=== PATIENT | male | born 1995 | race Caucasian/White ===

== ENCOUNTER 2016-10-01 00:06 | Inpatient (IN) ==
[2016-10-01 00:52] LABS: Bilirubin,Urine Negative (Negative); Blood,Urine Negative (Negative); Clarity,Urine Cloudy (Clear); Color,Urine Yellow (Yellow); Glucose,Urine (UA) Normal (Normal); Ketones,Urine Negative (Negative); Leukocyte Esterase,Urine Trace (Negative); Nitrite,Urine Negative (Negative); Protein,Urine Negative (Neg-Trace); Specific Gravity,Urine 1.028 (1.010-1.025); Urobilinogen,Urine Normal (Normal)
[2016-10-01 00:55] LABS: Hyaline Casts,Urine None Seen per lpf (None-Few); RBC,Urine 0-3 per hpf (0-3); Squamous Epithelial Cell,Urine Moderate per lpf (None-Few)
[2016-10-01 00:59] LABS: Basophils # 0.1 K/mcL (0.0-0.2); Basophils % 0.9 %; Eosinophils # 0.1 K/mcL (0.0-0.6); Eosinophils % 0.7 %; Hematocrit 45.9 % (37.5-50.1); Hemoglobin 14.7 g/dL (12.9-16.9); Immature Granulocytes % 0.3 % (0-4); Immature Platelets 3.3 % (1.1-6.1); Lymphocytes # 3.2 K/mcL (0.6-4.6); Lymphocytes % 47.2 %; Mean Corpuscular Hemoglobin 28.9 pg (28.0-33.3); Mean Corpuscular Volume 90.4 fL (83.0-100.0); Mean Platelet Volume 10.2 fL (9.4-12.4); Monocytes # 0.8 K/mcL (0.0-1.3); Monocytes % 11.2 %; Neutrophils # 2.7 K/mcL (1.6-8.9); Platelet Count 241 K/mcL (140-400); Red Blood Count 5.08 M/mcL (4.19-5.50); Segmented Neutrophils % 39.7 %
[2016-10-01 01:01] LABS: Amphetamine Screen,Urine Negative ng/mL (Cutoff=1000); Barbiturate Screen,Urine Negative ng/mL (Cutoff=200); Benzodiazepines Screen,Urine Negative ng/mL (Cutoff=200); Cannabinoid Screen,Urine Positive ng/mL (Cutoff = 50); Cocaine Screen,Urine Negative ng/mL (Cutoff= 300); Opiate Screen,Urine Negative ng/mL (Cutoff=300); Phencyclidine Screen,Urine Negative ng/mL (Cutoff=25)
[2016-10-01 01:05] LABS: Bacteria,Urine Few per hpf (None-Few); Mucus,Urine Few (Few)
[2016-10-01 01:15] LABS: BUN/Creatinine Ratio 13 (6-26); Blood Urea Nitrogen 13 mg/dL (8-26); Calcium 10.2 mg/dL (8.6-10.8); Carbon Dioxide 31 mEq/L (19-29); Chloride 103 mEq/L (98-109); Glucose 86 mg/dL (70-99); Osmolality,Calculated 291 (280-300); Potassium 3.8 mEq/L (3.5-4.5); Sodium 141 mEq/L (136-145); eGFR For African Americans > 60 (> 60); eGFR For Non-African Americans > 60 (> 60)
[2016-10-01 01:16] LABS: Acetaminophen < 1.0 mcg/mL (10-30); Ethanol < 10 mg/dL (0-10); Salicylate < 5.0 mg/dL (15-30)
--- NOTE | 2016-10-01 08:08 | Emergency Department Note ---
Attestation Statement - Attestation Attestation: I, Hiren Cox MD, personally evaluated this patient and discussed their management with the midlevel provicer, PAC/REALTIME CAPTIONER. I reviewed the midlevel provider 's note and agree with the documented findings, medical decision making, and plan of care. Patient is a 20-year-old male with history of schizophrenia who presented complaining of increased hallucinations for the past several days. Patient states that he sees worms crawling under his skin and coming out of his skin. He denies hearing voices. He denies any suicidal or homicidal ideation at this time. Patient is very anxious. On examination patient is a well-developed well-nourished young male in no acute distress. He is alert and cooperative. There is no cyanosis or diaphoresis. Sounds are clear and equal bilaterally. Heart regular rate and rhythm. Abdomen soft and nontender with normal bowel sounds. Labs reviewed. Patient was evaluated by the psychiatry service and they are working on placement for the patient. I did discuss the patient with a psychiatrist, Dr. Hamilton, from an outside facility, I believe [facility] in [place] but I am unsure. She did not feel the patient needed admitted because he was not suicidal or homicidal and refused to accept him. At shift change the patient is signed out to the oncoming dayshift team, Dr. Hammer and Dr. Medeiros.
--- NOTE | 2016-10-01 08:57 | Emergency Department Note ---
Disposition Clinical Impression: Tactile hallucinations Disposition: Admitted As Inpatient Condition: Good Time of Disposition: 13:51 Psych HPI - General Chief Complaint: ED Skin/Abscess/Foreign Body Stated Complaint: sees worms under skin Time Seen by Provider: 10/01/16 00:45 Source: patient Limitations: no limitations Nursing Notes Reviewed: Yes Vital Signs Reviewed: Yes - History of Present Illness HPI Narrative: Alert, oriented, nontoxic-appearing 20-year-old male presents for evaluation of increasing hallucinations for the past several days as well as "seeing worms crawling underneath and coming out of my skin". He denies any homicidal or suicidal ideations. He denies any auditory hallucinations. Pt complaint: other Onset (ago): day(s) (2) History of similar episodes: Yes - Related Data Home Medications Medication Instructions Recorded Confirmed No Known Home Drugs 10/01/16 10/01/16 Allergies Allergy/AdvReac Type Severity Reaction Status Date / Time No Known Allergies Allergy Verified 03/09/16 20:34 All systems ED: reviewed and negative except as stated. Constitutional: Denies: fever, chills, weakness, weight change Eyes: Denies: eye pain, eye discharge, vision change ENT ED: Denies: ear pain, throat pain, dental pain, hearing loss, epistaxis, congestion, dysphagia Cardiovascular: Denies: chest pain, palpitations, dyspnea on exertion, edema, syncope Respiratory: Denies: cough, dyspnea, wheezes, hemoptysis, stridor Gastrointestinal: Denies: abdominal pain, nausea, vomiting, diarrhea, constipation, hematemesis, melena, hematochezia Genitourinary: Denies: urgency, dysuria, frequency, hematuria Musculoskeletal: Denies: back pain, neck pain, arthralgia, myalgia Integumentary: Denies: rash, abrasion, lesions Neurological: Denies: headache, weakness, numbness, paresthesias, confusion, abnormal gait, vertigo Psychiatric: Reports: as per HPI, visual hallucinations. Denies: anxiety, depression, suicidal thoughts, homicidal thoughts, auditory hallucinations Endocrine: Denies: fatigue Hematological/Lymphatic: Denies: easy bleeding, easy bruising Allergic/Immunologic: Denies: facial swelling, urticaria Past Medical History - Past Medical History Attestation: Yes The following information was validated with the patient. Source: patient, nursing notes reviewed Medical history: Reports: no medical history, other Surgical history: Reports: no surgical history Psychiatric history: Reports: anxiety, bipolar, schizophrenia - Social History Smoking Status: Current every day smoker Smokeless Tobacco Status: No Alcohol use: Reports: occasionally, recent Drug use: Reports: cocaine, opiates, marijuana, methamphetamine, other Physical Exam - General Limitations: no limitations General appearance: alert, in no apparent distress - Head Head exam: atraumatic, normocephalic, normal inspection - Eye Eye exam: Present: normal appearance, PERRL, EOMI. Absent: nystagmus - ENT ENT exam: mucous membranes moist - Neck Neck exam: Present: normal inspection, full ROM, trachea midline - Chest Chest inspection: Present: normal inspection, symmetric chest wall rise - Respiratory Respiratory exam: Present: normal lung sounds bilaterally. Absent: respiratory distress, wheezes, stridor, accessory muscle use, prolonged expiratory phase - Cardiovascular Cardiovascular exam: Present: regular rate, normal rhythm, normal heart sounds - Abdominal Exam Abdominal exam: Present: soft, Non-Tender, normal bowel sounds. Absent: tenderness, distention, guarding, rebound, rigidity - Extremities Exam Extremities exam: Present: normal inspection, full ROM. Absent: tenderness, pedal edema - Neurological Exam Neurological exam: Present: alert, oriented X3 - Psychiatric Psychiatric exam: Present: normal affect, normal mood - Skin Skin exam: Present: warm, dry, intact, normal color Course Course Narrative: I received care of this patient from Travis Reyes PA-C due to mid-level shift change. Per Travis Reyes's accord, we are awaiting admission to the inpatient psychiatric unit here at . 0923: I spoke with SHAILA Welsh at . Blaise states that he believes the patient would be admitted to when a bed is available. The patient remains calm and cooperative and is resting in bed comfortably. He verbalizes no complaints or concerns at this time. 1220: Was notified by the patient's nurse that the patient is becoming agitated and states that he is wanting to leave. The patient had not been pink slipped by the previous shift. Reevaluation between myself and the patient reveals that the patient still denies any suicidal or homicidal ideations. I have spoken with Dr. Hammer regarding this. Dr. Bueno recommends consultation with . After speaking with one A, they state that they will be able to send a nurse appear momentarily for a repeat evaluation. I have discussed this plan with the patient and the patient is agreeable to this. I have pink slipped the patient so that he may not leave prior to repeat evaluation from the inpatient psychiatric nurse. 1305: SHAILA Welsh from is at the patient's bedside for repeat evaluation. 1349: I have discussed this patient's case and repeat evaluation with SHAILA Welsh from . Blaise has spoken with Dr. Altamirano, psychiatrist sandstone inspector repairer. The patient has been deemed no threat to himself or others after repeat evaluation. He has been given resource information and has been cleared for discharge by . again , the patient verbalizes no thoughts or suggestions of self-harm or harm to others. 1500: I have spoken with SHAILA Welsh from after yet another discussion between himself and Dr. Altamirano. Blaise states that Dr. Altamirano has decided to admit the patient to the inpatient unit. Vital Signs Temperature 98.0 F 10/01/16 00:10 Pulse Rate 76 10/01/16 00:10 Respiratory Rate 16 10/01/16 00:10 Blood Pressure 146/83 10/01/16 00:10 O2 Sat by Pulse Oximetry 97 10/01/16 00:10 Temperature 98.0 F 10/01/16 00:10 Pulse Rate 66 10/01/16 03:46 Respiratory Rate 16 10/01/16 03:46 Blood Pressure 110/66 10/01/16 03:46 O2 Sat by Pulse Oximetry 97 10/01/16 03:46 Oxygen Delivery Oxygen Delivery Room Air Psych - MDM Narrative Medical decision making narrative: 1630 hrs.: 1A as reevaluated the patient, they believe he does need admission, 72 hour hold was placed and he is being admitted. Impression was acute psychosis with visual hallucinations. - Lab Data Lab results reviewed: Yes I reviewed the patient's lab results. Lab results narrative: Laboratory Last Values WBC 6.8 K/mcL (4.3-11.1) 10/01/16 00:49 RBC 5.08 M/mcL (4.19-5.50) 10/01/16 00:49 Hgb 14.7 g/dL (12.9-16.9) 10/01/16 00:49 Hct 45.9 % (37.5-50.1) 10/01/16 00:49 MCV 90.4 fL (83.0-100.0) 10/01/16 00:49 MCH 28.9 pg (28.0-33.3) 10/01/16 00:49 MCHC 32.0 g/dL (31.6-35.5) 10/01/16 00:49 RDW 13.0 % (11.5-14.5) 10/01/16 00:49 Plt Count 241 K/mcL (140-400) 10/01/16 00:49 MPV 10.2 fL (9.4-12.4) 10/01/16 00:49 Immature Gran % 0.3 % (0-4) 10/01/16 00:49 Seg Neutrophils % 39.7 % 10/01/16 00:49 Lymphocytes % 47.2 % 10/01/16 00:49 Monocytes % 11.2 % 10/01/16 00:49 Eosinophils % 0.7 % 10/01/16 00:49 Basophils % 0.9 % 10/01/16 00:49 Neutrophils # 2.7 K/mcL (1.6-8.9) 10/01/16 00:49 Lymphocytes # 3.2 K/mcL (0.6-4.6) 10/01/16 00:49 Monocytes # 0.8 K/mcL (0.0-1.3) 10/01/16 00:49 Eosinophils # 0.1 K/mcL (0.0-0.6) 10/01/16 00:49 Basophils # 0.1 K/mcL (0.0-0.2) 10/01/16 00:49 Immature Plt Fraction 3.3 % (1.1-6.1) 10/01/16 00:49 Sodium 141 mEq/L (136-145) 10/01/16 00:49 Potassium 3.8 mEq/L (3.5-4.5) 10/01/16 00:49 Chloride 103 mEq/L (98-109) 10/01/16 00:49 Carbon Dioxide 31 mEq/L (19-29) H 10/01/16 00:49 BUN 13 mg/dL (8-26) 10/01/16 00:49 Creatinine 1.01 mg/dL (0.72-1.25) 10/01/16 00:49 Est GFR ( Amer) > 60 (> 60) 10/01/16 00:49 Est GFR (Non-Af Amer) > 60 (> 60) 10/01/16 00:49 BUN/Creatinine Ratio 13 (6-26) 10/01/16 00:49 Glucose 86 mg/dL (70-99) 10/01/16 00:49 Calculated Osmolality 291 (280-300) 10/01/16 00:49 Calcium 10.2 mg/dL (8.6-10.8) 10/01/16 00:49 Urine Color Yellow (Yellow) 10/01/16 00:44 Urine Clarity Cloudy (Clear) A 10/01/16 00:44 Urine pH 6.0 pH Units (5.0-8.0) 10/01/16 00:44 Ur Specific Dewy Rose 1.028 (1.010-1.025) H 10/01/16 00:44 Urine Protein Negative mg/dL (Neg-Trace) 10/01/16 00:44 Urine Glucose (UA) Normal mg/dL (Normal) 10/01/16 00:44 Urine Ketones Negative mg/dL (Negative) 10/01/16 00:44 Urine Blood Negative (Negative) 10/01/16 00:44 Urine Nitrite Negative (Negative) 10/01/16 00:44 Urine Bilirubin Negative (Negative) 10/01/16 00:44 Urine Urobilinogen Normal mg/dL (Normal) 10/01/16 00:44 Ur Leukocyte Esterase Trace (Negative) H 10/01/16 00:44 Urine Microscopic RBC 0-3 per hpf (0-3) 10/01/16 00:44 Urine Microscopic WBC 5-15 per hpf (0-3) H 10/01/16 00:44 Ur Squamous Epith Cells Moderate per lpf (None-Few) H 10/01/16 00:44 Urine Bacteria Few per hpf (None-Few) 10/01/16 00:44 Hyaline Casts None Seen per lpf (None-Few) 10/01/16 00:44 Urine Mucus Few (Few) 10/01/16 00:44 Salicylates < 5.0 mg/dL (15-30) L 10/01/16 00:49 Urine Opiates Screen Negative ng/mL (Xdhpkg=671) 10/01/16 00:44 Acetaminophen < 1.0 mcg/mL (10-30) L 10/01/16 00:49 Ur Barbiturates Screen Negative ng/mL (Orktdo=058) 10/01/16 00:44 Ur Phencyclidine Scrn Negative ng/mL (Cutoff=25) 10/01/16 00:44 Ur Amphetamines Screen Negative ng/mL (Qpndfc=5115) 10/01/16 00:44 U Benzodiazepines Scrn Negative ng/mL (Favesr=343) 10/01/16 00:44 Urine Cocaine Screen Negative ng/mL (Cutoff= 300) 10/01/16 00:44 U Marijuana (THC) Screen Positive ng/mL (Cutoff = 50) H 10/01/16 00:44 Ethyl Alcohol < 10 mg/dL (0-10) 10/01/16 00:49 Result diagrams: 10/01/16 00:49 10/01/16 00:49 Lab Results 10/01/16 10/01/16 10/01/16 Range/Units 00:44 00:44 00:49 WBC 6.8 (4.3-11.1) K/mcL RBC 5.08 (4.19-5.50) M/mcL Hgb 14.7 (12.9-16.9) g/dL Hct 45.9 (37.5-50.1) % MCV 90.4 (83.0-100.0) fL MCH 28.9 (28.0-33.3) pg MCHC 32.0 (31.6-35.5) g/dL RDW 13.0 (11.5-14.5) % Plt Count 241 (140-400) K/mcL MPV 10.2 (9.4-12.4) fL Immature Gran % 0.3 (0-4) % Seg Neutrophils % 39.7 % Lymphocytes % 47.2 % Monocytes % 11.2 % Eosinophils % 0.7 % Basophils % 0.9 % Neutrophils # 2.7 (1.6-8.9) K/mcL Lymphocytes # 3.2 (0.6-4.6) K/mcL Monocytes # 0.8 (0.0-1.3) K/mcL Eosinophils # 0.1 (0.0-0.6) K/mcL Basophils # 0.1 (0.0-0.2) K/mcL Immature Plt Fraction 3.3 (1.1-6.1) % Sodium (136-145) mEq/L Potassium (3.5-4.5) mEq/L Chloride (98-109) mEq/L Carbon Dioxide (19-29) mEq/L BUN (8-26) mg/dL Creatinine (0.72-1.25) mg/dL Est GFR ( Amer) (> 60) Est GFR (Non-Af Amer) (> 60) BUN/Creatinine Ratio (6-26) Glucose (70-99) mg/dL Calculated Osmolality (280-300) Calcium (8.6-10.8) mg/dL Urine Color Yellow (Yellow) Urine Clarity Cloudy A (Clear) Urine pH 6.0 (5.0-8.0) pH Units Ur Specific Dewy Rose 1.028 H (1.010-1.025) Urine Protein Negative (Neg-Trace) mg/dL Urine Glucose (UA) Normal (Normal) mg/dL Urine Ketones Negative (Negative) mg/dL Urine Blood Negative (Negative) Urine Nitrite Negative (Negative) Urine Bilirubin Negative (Negative) Urine Urobilinogen Normal (Normal) mg/dL Ur Leukocyte Esterase Trace H (Negative) Urine Microscopic RBC 0-3 (0-3) per hpf Urine Microscopic WBC 5-15 H (0-3) per hpf Ur Squamous Epith Cells Moderate H (None-Few) per lpf Urine Bacteria Few (None-Few) per hpf Hyaline Casts None Seen (None-Few) per lpf Urine Mucus Few (Few) Salicylates (15-30) mg/dL Urine Opiates Screen Negative (Gizvwf=122) ng/mL Acetaminophen (10-30) mcg/mL Ur Barbiturates Screen Negative (Inxdsi=090) ng/mL Ur Phencyclidine Scrn Negative (Cutoff=25) ng/mL Ur Amphetamines Screen Negative (Kkbeyf=9251) ng/mL U Benzodiazepines Scrn Negative (Wlyzlh=023) ng/mL Urine Cocaine Screen Negative (Cutoff= 300) ng/mL U Marijuana (THC) Screen Positive H (Cutoff = 50) ng/mL Ethyl Alcohol (0-10) mg/dL 10/01/16 Range/Units 00:49 WBC (4.3-11.1) K/mcL RBC (4.19-5.50) M/mcL Hgb (12.9-16.9) g/dL Hct (37.5-50.1) % MCV (83.0-100.0) fL MCH (28.0-33.3) pg MCHC (31.6-35.5) g/dL RDW (11.5-14.5) % Plt Count (140-400) K/mcL MPV (9.4-12.4) fL Immature Gran % (0-4) % Seg Neutrophils % % Lymphocytes % % Monocytes % % Eosinophils % % Basophils % % Neutrophils # (1.6-8.9) K/mcL Lymphocytes # (0.6-4.6) K/mcL Monocytes # (0.0-1.3) K/mcL Eosinophils # (0.0-0.6) K/mcL Basophils # (0.0-0.2) K/mcL Immature Plt Fraction (1.1-6.1) % Sodium 141 (136-145) mEq/L Potassium 3.8 (3.5-4.5) mEq/L Chloride 103 (98-109) mEq/L Carbon Dioxide 31 H (19-29) mEq/L BUN 13 (8-26) mg/dL Creatinine 1.01 (0.72-1.25) mg/dL Est GFR ( Amer) > 60 (> 60) Est GFR (Non-Af Amer) > 60 (> 60) BUN/Creatinine Ratio 13 (6-26) Glucose 86 (70-99) mg/dL Calculated Osmolality 291 (280-300) Calcium 10.2 (8.6-10.8) mg/dL Urine Color (Yellow) Urine Clarity (Clear) Urine pH (5.0-8.0) pH Units Ur Specific Dewy Rose (1.010-1.025) Urine Protein (Neg-Trace) mg/dL Urine Glucose (UA) (Normal) mg/dL Urine Ketones (Negative) mg/dL Urine Blood (Negative) Urine Nitrite (Negative) Urine Bilirubin (Negative) Urine Urobilinogen (Normal) mg/dL Ur Leukocyte Esterase (Negative) Urine Microscopic RBC (0-3) per hpf Urine Microscopic WBC (0-3) per hpf Ur Squamous Epith Cells (None-Few) per lpf Urine Bacteria (None-Few) per hpf Hyaline Casts (None-Few) per lpf Urine Mucus (Few) Salicylates < 5.0 L (15-30) mg/dL Urine Opiates Screen (Rwhscc=307) ng/mL Acetaminophen < 1.0 L (10-30) mcg/mL Ur Barbiturates Screen (Uzocic=419) ng/mL Ur Phencyclidine Scrn (Cutoff=25) ng/mL Ur Amphetamines Screen (Iiteye=9544) ng/mL U Benzodiazepines Scrn (Zavnqe=019) ng/mL Urine Cocaine Screen (Cutoff= 300) ng/mL U Marijuana (THC) Screen (Cutoff = 50) ng/mL Ethyl Alcohol < 10 (0-10) mg/dL Psychiatric Medical Clearance - Medical Clearance Checklist Medical History: No Social History Section defined Current Vitals: Last Vital Signs Temp 98.0 F 10/01/16 00:10 Pulse 66 10/01/16 03:46 Resp 16 10/01/16 03:46 BP 110/66 10/01/16 03:46 Pulse Ox 97 10/01/16 03:46 Psychiatric Lab Panel: Drug Levels and Toxicity 10/01/16 10/01/16 00:44 00:49 Urine Opiates Screen Negative Acetaminophen < 1.0 L Ur Barbiturates Screen Negative Ur Phencyclidine Scrn Negative Ur Amphetamines Screen Negative U Benzodiazepines Scrn Negative Urine Cocaine Screen Negative U Marijuana (THC) Screen Positive H Ethyl Alcohol < 10 Abnormal Labs: Abnormal lab results Carbon Dioxide 31 mEq/L (19-29) H 10/01/16 00:49 Urine Clarity Cloudy (Clear) A 10/01/16 00:44 Ur Specific Dewy Rose 1.028 (1.010-1.025) H 10/01/16 00:44 Ur Leukocyte Esterase Trace (Negative) H 10/01/16 00:44 Urine Microscopic WBC 5-15 per hpf (0-3) H 10/01/16 00:44 Ur Squamous Epith Cells Moderate per lpf (None-Few) H 10/01/16 00:44 Salicylates < 5.0 mg/dL (15-30) L 10/01/16 00:49 Acetaminophen < 1.0 mcg/mL (10-30) L 10/01/16 00:49 U Marijuana (THC) Screen Positive ng/mL (Cutoff = 50) H 10/01/16 00:44
[2016-10-01] MEDS ORDERED: *HR* LORazepam 2 MG/ML VIAL IM ONE (15:15)
[2016-10-01] MEDS ORDERED: Haloperidol Lactate 5 MG/ML VIAL IM ONE (15:15)
[2016-10-01] MEDS ORDERED: Ibuprofen 400 MG TABLET PO PRN (16:41)
[2016-10-01] MEDS ORDERED: MOM Conc 10 ML UD.LIQ PO PRN (16:41)
[2016-10-01] MEDS ORDERED: Mag Hydrox/Al Hydrox/Simeth 30 ML UDC PO PRN (16:41)
[2016-10-01] MEDS ORDERED: Haloperidol Lactate 5 MG/ML VIAL IM PRN (16:41)
[2016-10-01] MEDS ORDERED: *HR* LORazepam 2 MG/ML VIAL IM PRN (16:41)
[2016-10-01] MEDS: *HR* LORazepam 1 MG TABLET PO PRN (20:56)
--- NOTE | 2016-10-02 15:04 | Psychiatry History & Physical ---
Date of Encounter: 10/02/16 Time of Encounter: 14:55 History of Present Illness Patient Stated Chief Complaint: worms Medicare Admission Attestation: For traditional Medicare patients the provided hospital inpatient services are reasonable and necessary and in the case of services not specified as inpatient -only under 42 CFR 419.22 (n), that they are appropriately provided as inpatient services in accordance 42 CFR 412.3. For Critical Access Hospital the patient may reasonably be expected to be discharged or transferred to a hospital within 96 hours after admission to the Critical Access Hospital. Admitted From: Home Plans for Post Hospital Care: Home History of Present Illness: Mr. Little is a 20 year old male who presented to the ER claiming he had worms crawling under his skin and coming out of the chicken he was eating. Not suicidal or homicidal but actively psychotic. Responding to IS. Angry about admission. Reports he has no mental health issues and he wants tested for HIV. Claims he has no medical issues but then states he was bleeding out of his brain yesterday. When asked about allergies he states "just when my head goes through windshields." Answers to questions nonsensical at times. Heavy substance abuse history. Part of presentation may be substance induced. Unwilling to consider any treatment. Prior admission discharged him on Vistaril prn only. Suspect he refused treatment then as well and ended up leaving with nothing because he did not meet criteria for forced medications. Situation this time may be similar. He has been verbally agitated but he has not acted in a dangerous manner and he has not threatened harm to self or others. Informed him this staff writer would be ordering medications that would likely help his beliefs of worms crawling in his body, but that provided he was not a safety risk taking the medication would be his choice. Past Med Surg Social Fam HX - Past Medical History Medical history: no medical history, other - Past Psychiatric History Psychiatric history: Reports: schizophrenia, previous psychiatric hospitalization Family psychiatric history: Unknown Family History of Suicide: Unknown - Past Surgical History Surgical History: no surgical history - Social History Smoking Status: Current every day smoker Smokeless Tobacco Status: No Alcohol use: occasionally, recent Drug use: cocaine, opiates, marijuana, methamphetamine, other Medications & Allergies No Known Home Drugs 10/01/16 [History] Allergies No Known Allergies Allergy (Verified 03/09/16 20:34) Review of Systems Constitutional: Denies: fever, chills, weakness, weight change Eyes: Denies: eye pain, vision change Ears, Nose, Throat: Denies: ear pain, throat pain, dental pain, hearing loss, congestion Cardiovascular: Denies: chest pain, palpitations, dyspnea on exertion Respiratory: Denies: cough, dyspnea, wheezes Gastrointestinal: Denies: abdominal pain, nausea, vomiting, diarrhea, constipation Genitourinary male: Denies: urgency, dysuria, frequency, genital lesions Genitourinary female: Denies: urgency, dysuria, frequency, abnormal menses, dyspareunia Musculoskeletal: Denies: joint swelling, joint pain Integumentary: Denies: rash, lesions, pruritus Neurological: Denies: headache, weakness, numbness, memory loss Endocrine: Denies: fatigue, heat or cold intolerance Hematologic/Lymphatic: Denies: easy bruising, lymphadenopathy Allergic/Immunologic: Denies: urticaria, itchy eyes Mental Status Exam Patient orientation: Yes Person, Yes Time, Yes Place Level of alertness: Alert Patient appearance: Appropriate Behavior: uncooperative Psychomotor activity: Normal Eye contact: Minimal Contact Mood description: Angry Affect description: congruent with mood Speech pattern: Normal rate, Normal rhythm, Normal tone Speech volume: Normal Thought process: Loose Associations Thought content: No Suicidal ideation, No Homicidal ideation, Yes Somatic delusion Perceptual disturbances: Yes Reacting to internal stimuli Attention span: Capable of Focused Attention Memory description: Grossly Intact Patient reliability: Questionable Historian Intelligence estimate: Below Average Judgment: Limited Insight: None Exam - HEENT Head exam IM: Present: normal inspection Eye exam IM: Present: EOMI ENT exam IM: Present: mucous membranes moist - Neurological Neurological exam IM: Present: alert, oriented X3 - Respiratory Respiratory exam IM: Present: CTAB - GI/Abdominal GI/Abdominal exam IM: Present: normal bowel sounds - Extremities Extremities exam IM: Present: full ROM - Skin Skin exam IM: Present: intact Results - Vital Signs Vital signs: Temp Pulse Resp BP Pulse Ox 97.8 F 57 16 120/74 97 10/02/16 09:00 10/02/16 09:00 10/02/16 09:00 10/02/16 09:00 10/01/16 03:46 - Labs Labs: Laboratory Last Values WBC 6.8 K/mcL (4.3-11.1) 10/01/16 00:49 RBC 5.08 M/mcL (4.19-5.50) 10/01/16 00:49 Hgb 14.7 g/dL (12.9-16.9) 10/01/16 00:49 Hct 45.9 % (37.5-50.1) 10/01/16 00:49 MCV 90.4 fL (83.0-100.0) 10/01/16 00:49 MCH 28.9 pg (28.0-33.3) 10/01/16 00:49 MCHC 32.0 g/dL (31.6-35.5) 10/01/16 00:49 RDW 13.0 % (11.5-14.5) 10/01/16 00:49 Plt Count 241 K/mcL (140-400) 10/01/16 00:49 MPV 10.2 fL (9.4-12.4) 10/01/16 00:49 Immature Gran % 0.3 % (0-4) 10/01/16 00:49 Seg Neutrophils % 39.7 % 10/01/16 00:49 Lymphocytes % 47.2 % 10/01/16 00:49 Monocytes % 11.2 % 10/01/16 00:49 Eosinophils % 0.7 % 10/01/16 00:49 Basophils % 0.9 % 10/01/16 00:49 Neutrophils # 2.7 K/mcL (1.6-8.9) 10/01/16 00:49 Lymphocytes # 3.2 K/mcL (0.6-4.6) 10/01/16 00:49 Monocytes # 0.8 K/mcL (0.0-1.3) 10/01/16 00:49 Eosinophils # 0.1 K/mcL (0.0-0.6) 10/01/16 00:49 Basophils # 0.1 K/mcL (0.0-0.2) 10/01/16 00:49 Immature Plt Fraction 3.3 % (1.1-6.1) 10/01/16 00:49 Sodium 141 mEq/L (136-145) 10/01/16 00:49 Potassium 3.8 mEq/L (3.5-4.5) 10/01/16 00:49 Chloride 103 mEq/L (98-109) 10/01/16 00:49 Carbon Dioxide 31 mEq/L (19-29) H 10/01/16 00:49 BUN 13 mg/dL (8-26) 10/01/16 00:49 Creatinine 1.01 mg/dL (0.72-1.25) 10/01/16 00:49 Est GFR ( Amer) > 60 (> 60) 10/01/16 00:49 Est GFR (Non-Af Amer) > 60 (> 60) 10/01/16 00:49 BUN/Creatinine Ratio 13 (6-26) 10/01/16 00:49 Glucose 86 mg/dL (70-99) 10/01/16 00:49 Calculated Osmolality 291 (280-300) 10/01/16 00:49 Calcium 10.2 mg/dL (8.6-10.8) 10/01/16 00:49 Urine Color Yellow (Yellow) 10/01/16 00:44 Urine Clarity Cloudy (Clear) A 10/01/16 00:44 Urine pH 6.0 pH Units (5.0-8.0) 10/01/16 00:44 Ur Specific [place] 1.028 (1.010-1.025) H 10/01/16 00:44 Urine Protein Negative mg/dL (Neg-Trace) 10/01/16 00:44 Urine Glucose (UA) Normal mg/dL (Normal) 10/01/16 00:44 Urine Ketones Negative mg/dL (Negative) 10/01/16 00:44 Urine Blood Negative (Negative) 10/01/16 00:44 Urine Nitrite Negative (Negative) 10/01/16 00:44 Urine Bilirubin Negative (Negative) 10/01/16 00:44 Urine Urobilinogen Normal mg/dL (Normal) 10/01/16 00:44 Ur Leukocyte Esterase Trace (Negative) H 10/01/16 00:44 Urine Microscopic RBC 0-3 per hpf (0-3) 10/01/16 00:44 Urine Microscopic WBC 5-15 per hpf (0-3) H 10/01/16 00:44 Ur Squamous Epith Cells Moderate per lpf (None-Few) H 10/01/16 00:44 Urine Bacteria Few per hpf (None-Few) 10/01/16 00:44 Hyaline Casts None Seen per lpf (None-Few) 10/01/16 00:44 Urine Mucus Few (Few) 10/01/16 00:44 Salicylates < 5.0 mg/dL (15-30) L 10/01/16 00:49 Urine Opiates Screen Negative ng/mL (Fsvnuq=163) 10/01/16 00:44 Acetaminophen < 1.0 mcg/mL (10-30) L 10/01/16 00:49 Ur Barbiturates Screen Negative ng/mL (Zjfcgn=623) 10/01/16 00:44 Ur Phencyclidine Scrn Negative ng/mL (Cutoff=25) 10/01/16 00:44 Ur Amphetamines Screen Negative ng/mL (Psbhse=9752) 10/01/16 00:44 U Benzodiazepines Scrn Negative ng/mL (Yytftb=649) 10/01/16 00:44 Urine Cocaine Screen Negative ng/mL (Cutoff= 300) 10/01/16 00:44 U Marijuana (THC) Screen Positive ng/mL (Cutoff = 50) H 10/01/16 00:44 Ethyl Alcohol < 10 mg/dL (0-10) 10/01/16 00:49 Assessment and Plan (1) Acute psychosis Current visit: No Status: Acute Plan: Admit inpatient for safety and stabilization, Close observation, Suicide Precautions per unit protocol, Encourage participation in unit milieu, Group Therapy, Monitor sleep, Monitor appetite Risks, benefits, side effects, alternatives discussed w/pt: Yes Patient agreeable to treatment: Yes Plans for Post Hospital Care: Home Estimated Length of Stay (Days): 4
[2016-10-02] MEDS: *HR* LORazepam 1 MG TABLET PO PRN (20:11)
--- NOTE | 2016-10-03 11:48 | Psychiatry Progress Note ---
Date of Encounter: 10/03/16 Time of Encounter: 11:41 Subjective Interval history: Psychotic. Giggling. Making nonsensical statements. Actively responding to internal stimuli. Refused all meds last night. Bordered on needing prns but ultimately did not do anything that warranted forced/emergency meds. Other patients are steering clear of him. Some were annoyed with him but backed down when they realized how sick he was. Client today is still focused on worms and possibly having AIDS. Called himself "the mother of worms" for spreading HIV but then broke down laughing. HIV test ordered but not drawn. Very possible client refused blood test. No real supports. Client is essentially homeless. Admitted to extensive drug use including a long history with LSD that is likely contributing to his clinical picture now. Drug of choice now is heroin. Has also repeatedly used Crystal Meth, Ecstasy, Bath Salts, etc. Unclear how much better he can get even if he agrees to treatment with antipsychotics. Review of Systems Constitutional: Denies: fever, chills, weakness, weight change Eyes: Denies: eye pain, vision change Ears, Nose, Throat: Denies: ear pain, throat pain, dental pain, hearing loss, congestion Cardiovascular: Denies: chest pain, palpitations, dyspnea on exertion Respiratory: Denies: cough, dyspnea, wheezes Gastrointestinal: Denies: abdominal pain, nausea, vomiting, diarrhea, constipation Musculoskeletal: Denies: joint swelling, joint pain Neurological: Denies: headache, weakness, numbness, memory loss Objective: Exam Patient orientation: Yes Person, Yes Time, Yes Place Level of alertness: Alert Patient appearance: Appropriate Behavior: restless Psychomotor activity: Normal Eye contact: Minimal Contact Mood description: Labile Affect description: inappropriate to situation Speech pattern: Normal rate, Normal rhythm, Normal tone Speech volume: Normal Thought process: Loose Associations Thought content: No Suicidal ideation, No Homicidal ideation, Yes Somatic delusion Perceptual disturbances: Yes Reacting to internal stimuli Judgment: Poor Insight: None Results - Vital Signs Vital Signs: Temp Pulse Resp BP Pulse Ox 97.9 F 73 16 125/65 97 10/03/16 09:00 10/03/16 09:00 10/03/16 09:00 10/03/16 09:00 10/01/16 03:46 Assessment and Plan (1) Acute psychosis Current visit: No Status: Acute Plan: Continue hospitalization, Close observation, Suicide Precautions per unit protocol, Encourage participation in unit milieu, Group Therapy, Monitor sleep, Monitor appetite Risks, benefits, side effects, alternatives discussed w/pt: Yes Patient agreeable to treatment: Yes Consult Discharge Plan - Plan Referrals: NO,PCP [Primary Care Provider] -
[2016-10-03] MEDS: *HR* LORazepam 1 MG TABLET PO PRN (15:28)
--- NOTE | 2016-10-04 14:07 | Psychiatry Progress Note ---
Date of Encounter: 10/04/16 Time of Encounter: 14:04 Subjective Interval history: Completely disorganized and psychotic. Refusing any med that might help him. Staff cleared out the main room earlier thinking he might require emergency medications but he calmed down on his own. HIV test came back negative. Still very focused on having AIDS and spreading it around. Also remains convinced that he has worms. Thoughts are nonsensical. Actively responding to internal stimuli. Although he has not been aggressive he cannot care for himself in this state. Will require probate and forced meds. Review of Systems Constitutional: Denies: fever, chills, weakness, weight change Eyes: Denies: eye pain, vision change Ears, Nose, Throat: Denies: ear pain, throat pain, dental pain, hearing loss, congestion Cardiovascular: Denies: chest pain, palpitations, dyspnea on exertion Respiratory: Denies: cough, dyspnea, wheezes Gastrointestinal: Denies: abdominal pain, nausea, vomiting, diarrhea, constipation Musculoskeletal: Denies: joint swelling, joint pain Neurological: Denies: headache, weakness, numbness, memory loss Objective: Exam Patient orientation: Yes Person, Yes Time, Yes Place Level of alertness: Alert Patient appearance: Appropriate Behavior: agitated Psychomotor activity: Normal Eye contact: Minimal Contact Mood description: Labile Affect description: congruent with mood Speech pattern: Rambling Speech volume: Loud Thought process: Loose Associations Thought content: No Suicidal ideation, No Homicidal ideation, Yes Overt delusions Perceptual disturbances: Yes Reacting to internal stimuli Judgment: Poor Insight: None Results - Vital Signs Vital Signs: Temp Pulse Resp BP Pulse Ox 97.4 F L 59 16 97/69 97 10/04/16 09:00 10/04/16 09:00 10/04/16 09:00 10/04/16 09:00 10/01/16 03:46 - Labs Labs: Laboratory Results - last 24 hr 10/03/16 14:37 HIV Ag/Ab Combo Qual Nonreactive Assessment and Plan (1) Acute psychosis Current visit: No Status: Acute Plan: Continue hospitalization, Close observation, Suicide Precautions per unit protocol, Encourage participation in unit milieu, Group Therapy, Monitor sleep, Monitor appetite Risks, benefits, side effects, alternatives discussed w/pt: Yes Patient agreeable to treatment: Yes Consult Discharge Plan - Plan Referrals: NO,PCP [Primary Care Provider] -
[2016-10-04] MEDS: *HR* LORazepam 1 MG TABLET PO PRN (14:37)
[2016-10-04] MEDS: traZODone 50 MG TABLET PO PRN (21:26)
--- NOTE | 2016-10-05 12:23 | Psychiatry Progress Note ---
Date of Encounter: 10/05/16 Time of Encounter: 12:20 Subjective Interval history: Took a prn Haldol yesterday after much encouragement. Able to calm down after the medication but has refused all antipsychotics since. Remains actively psychotic. Walking around the unit talking loudly about spreading AIDS and worms. Giggling in response to internal stimuli. Cannot care for self in current state. Easily agitated but stops short of being violent. However, he is very ill and he would be completely unpredictable in the community without the structure of the hospital and support of staff. Pursuing probate and forced medications. Review of Systems Constitutional: Denies: fever, chills, weakness, weight change Eyes: Denies: eye pain, vision change Ears, Nose, Throat: Denies: ear pain, throat pain, dental pain, hearing loss, congestion Cardiovascular: Denies: chest pain, palpitations, dyspnea on exertion Respiratory: Denies: cough, dyspnea, wheezes Gastrointestinal: Denies: abdominal pain, nausea, vomiting, diarrhea, constipation Musculoskeletal: Denies: joint swelling, joint pain Neurological: Denies: headache, weakness, numbness, memory loss Objective: Exam Patient orientation: Yes Person, Yes Time, Yes Place Level of alertness: Alert Patient appearance: Appropriate Behavior: agitated, restless Psychomotor activity: Increased Eye contact: Minimal Contact Mood description: Labile Affect description: labile Speech pattern: Rambling Speech volume: Loud Thought process: Loose Associations Thought content: No Suicidal ideation, No Homicidal ideation, Yes Preoccupation Perceptual disturbances: Yes Reacting to internal stimuli Judgment: Poor Insight: Minimal Results - Vital Signs Vital Signs: Temp Pulse Resp BP Pulse Ox 98.6 F 54 16 115/63 97 10/05/16 09:00 10/05/16 09:00 10/05/16 09:00 10/05/16 09:00 10/01/16 03:46 Assessment and Plan (1) Acute psychosis Current visit: No Status: Acute Plan: Continue hospitalization, Close observation, Suicide Precautions per unit protocol, Encourage participation in unit milieu, Group Therapy, Monitor sleep, Monitor appetite Risks, benefits, side effects, alternatives discussed w/pt: Yes Patient agreeable to treatment: Yes Consult Discharge Plan - Plan Referrals: NO,PCP [Primary Care Provider] -
[2016-10-05] MEDS ORDERED: Nicotine 2 MG GUM BC PRN (15:27)
[2016-10-05] MEDS: *HR* LORazepam 1 MG TABLET PO PRN (15:42)
[2016-10-05] MEDS: traZODone 50 MG TABLET PO PRN (21:30)
[2016-10-06] MEDS ORDERED: Haloperidol Lactate 5 MG/ML VIAL IM ONE (10:02)
--- NOTE | 2016-10-06 10:15 | Psychiatry Progress Note ---
Date of Encounter: 10/06/16 Time of Encounter: 10:11 Subjective Interval history: Client just received emergency meds after speaking with this financial underwriter. Wanting to leave. Yelling, banging on doors, trying to break down entryway. Still refusing all antipsychotics. He does take Ativan, Benadryl, and Trazodone. These medications calm him down to the point that he is not acting violently. However, in his mind he thinks he is cooperating by taking these meds. Does not process that he needs treatment with antipsychotics. Disorganized. Tried to disrobe in the open area of the unit yesterday. Still talking about AIDS and worms. Giggles to self constantly. Court date next week for probate/ forced medications. Review of Systems Constitutional: Denies: fever, chills, weakness, weight change Eyes: Denies: eye pain, vision change Ears, Nose, Throat: Denies: ear pain, throat pain, dental pain, hearing loss, congestion Cardiovascular: Denies: chest pain, palpitations, dyspnea on exertion Respiratory: Denies: cough, dyspnea, wheezes Gastrointestinal: Denies: abdominal pain, nausea, vomiting, diarrhea, constipation Musculoskeletal: Denies: joint swelling, joint pain Neurological: Denies: headache, weakness, numbness, memory loss Objective: Exam Patient orientation: Yes Person, Yes Time, Yes Place Level of alertness: Alert Patient appearance: Appropriate Behavior: agitated, uncooperative, impulsive Psychomotor activity: Normal Eye contact: Maintains Eye Contact Mood description: Angry, Elevated Affect description: congruent with mood Speech pattern: Normal rate, Normal rhythm, Normal tone Speech volume: Loud Thought process: Loose Associations Thought content: No Suicidal ideation, No Homicidal ideation, Yes Overt delusions Perceptual disturbances: Yes Reacting to internal stimuli Judgment: Poor Insight: None Results - Vital Signs Vital Signs: Temp Pulse Resp BP Pulse Ox 98.2 F 63 16 118/67 97 10/05/16 21:00 10/05/16 21:00 10/05/16 21:00 10/05/16 21:00 10/01/16 03:46 Assessment and Plan (1) Acute psychosis Current visit: No Status: Acute Plan: Continue hospitalization, Close observation, Suicide Precautions per unit protocol, Encourage participation in unit milieu, Group Therapy, Monitor sleep, Monitor appetite Risks, benefits, side effects, alternatives discussed w/pt: Yes Patient agreeable to treatment: Yes Consult Discharge Plan - Plan Referrals: NO,PCP [Primary Care Provider] -
[2016-10-06] MEDS: Nicotine 21 MG PATCH.TD24 TD SCH (18:11)
[2016-10-06] MEDS: hydrOXYzine pamoate 25 MG CAPSULE PO PRN (18:16)
--- NOTE | 2016-10-07 09:41 | Psychiatry Progress Note ---
Date of Encounter: 10/07/16 Time of Encounter: 09:36 Subjective Interval history: Looks a little better today. Did not end up getting emergency medications yesterday. Calmed down after the code was called. Took Seroquel last night for the first time. Reported it made him tired but it also provided some clinical benefit. Denies he feels the "worms" today. However, he does not attribute this to the Seroquel at all. He reports that's just how his health goes. Able to have a fairly lucid conversation about the fact that he has a Felony V for LSD possession and that his affiliate marketing coordinator told him he might have to serve time. He is unsure when his court date is but knows it is coming up. Still giggling to himself but he might actually respond some to treatment if he will continue to comply with the Seroquel/another antipsychotic. Thinks he will probably live with his aunt after discharge. Agreeable to signing a CIRO for her so social work can follow up tomorrow. Review of Systems Constitutional: Denies: fever, chills, weakness, weight change Eyes: Denies: eye pain, vision change Ears, Nose, Throat: Denies: ear pain, throat pain, dental pain, hearing loss, congestion Cardiovascular: Denies: chest pain, palpitations, dyspnea on exertion Respiratory: Denies: cough, dyspnea, wheezes Gastrointestinal: Denies: abdominal pain, nausea, vomiting, diarrhea, constipation Musculoskeletal: Denies: joint swelling, joint pain Neurological: Denies: headache, weakness, numbness, memory loss Objective: Exam Patient orientation: Yes Person, Yes Time, Yes Place Level of alertness: Alert Patient appearance: Appropriate Behavior: calm, cooperative Psychomotor activity: Normal Eye contact: Minimal Contact Mood description: Irritable Affect description: congruent with mood Speech pattern: Normal rate, Normal rhythm, Normal tone Speech volume: Normal Thought process: Disorganized Thought content: No Suicidal ideation, No Homicidal ideation, Yes Preoccupation Perceptual disturbances: Yes Reacting to internal stimuli Judgment: Limited Insight: None Results - Vital Signs Vital Signs: Temp Pulse Resp BP Pulse Ox 98 F 65 18 133/71 97 10/06/16 20:21 10/06/16 20:21 10/06/16 20:21 10/06/16 20:21 10/01/16 03:46 Assessment and Plan (1) Acute psychosis Current visit: No Status: Acute Plan: Continue hospitalization, Close observation, Suicide Precautions per unit protocol, Encourage participation in unit milieu, Group Therapy, Monitor sleep, Monitor appetite Risks, benefits, side effects, alternatives discussed w/pt: Yes Patient agreeable to treatment: Yes Consult Discharge Plan - Plan Referrals: NO,PCP [Primary Care Provider] -
[2016-10-07] MEDS: Nicotine 21 MG PATCH.TD24 TD SCH (11:36)
[2016-10-07] MEDS: hydrOXYzine pamoate 25 MG CAPSULE PO PRN (12:22)
[2016-10-07] MEDS: *HR* LORazepam 1 MG TABLET PO PRN (20:24)
[2016-10-08] MEDS: Nicotine 21 MG PATCH.TD24 TD SCH (09:33)
[2016-10-08] MEDS: hydrOXYzine pamoate 25 MG CAPSULE PO PRN ×2 (11:53→16:49)
--- NOTE | 2016-10-08 16:31 | Psychiatry Progress Note ---
Date of Encounter: 10/08/16 Time of Encounter: 11:45 Results - Vital Signs Vital Signs: Temp Pulse Resp BP Pulse Ox 97.3 F L 63 14 133/68 97 10/08/16 09:00 10/08/16 09:00 10/08/16 09:00 10/08/16 09:00 10/01/16 03:46 Consult Discharge Plan - Plan Referrals: NO,PCP [Primary Care Provider] -
--- NOTE | 2016-10-08 16:41 | Psychiatry Progress Note ---
Date of Encounter: 10/08/16 Time of Encounter: 11:45 Subjective Interval history: Patient seen pacing the hallway most past of the day. HE walked to physician office multiple times asking when he was goig to be discharged. He refused his medications this AM stating he does not need them and needed to get out of here. He patient is only interested in getting taking medication (klonopin) for anxiety.He refused to sit with public relations writer for an evaluation stating he was informed by the previous physician he was going lisa discharged today. He mentioned he has beentaking his Seroquel at night. He reported he is feeling better and no longer feels "the worms" crawling on his skin. Patient walked out of the office laughing and giggling to himself. Review of Systems Constitutional: Denies: fever, chills, weakness, weight change Eyes: Denies: eye pain, vision change Ears, Nose, Throat: Denies: ear pain, throat pain, dental pain, hearing loss, congestion Cardiovascular: Denies: chest pain, palpitations, dyspnea on exertion Respiratory: Denies: cough, dyspnea, wheezes Gastrointestinal: Denies: abdominal pain, nausea, vomiting, diarrhea, constipation Musculoskeletal: Denies: joint swelling, joint pain Neurological: Denies: headache, weakness, numbness, memory loss Objective: Exam Patient orientation: Yes Person, Yes Time, Yes Place Level of alertness: Alert Patient appearance: Appropriate, Well Groomed Behavior: calm, uncooperative Psychomotor activity: Normal Eye contact: Maintains Eye Contact Mood description: Euthymic/stable Affect description: congruent with mood, full range Speech pattern: Normal rate, Normal rhythm, Normal tone Speech volume: Normal Thought process: Linear, Goal Oriented Thought content: No Suicidal ideation, No Homicidal ideation, No Overt delusions Perceptual disturbances: No Auditory hallucinations, No Visual hallucinations Judgment: Fair Insight: Partial Results - Vital Signs Vital Signs: Temp Pulse Resp BP Pulse Ox 97.3 F L 63 14 133/68 97 10/08/16 09:00 10/08/16 09:00 10/08/16 09:00 10/08/16 09:00 10/01/16 03:46 Assessment and Plan (1) Tactile hallucinations Current visit: Yes Status: Acute (2) Acute psychosis Current visit: No Status: Acute Risks, benefits, side effects, alternatives discussed w/pt: Yes Patient agreeable to treatment: Yes (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
[2016-10-09] MEDS: Nicotine 21 MG PATCH.TD24 TD SCH (08:56)
--- NOTE | 2016-10-09 14:02 | Psychiatry Progress Note ---
Date of Encounter: 10/09/16 Time of Encounter: 13:30 Subjective Interval history: Patient seen in the office this morning. He showed some improvement from yesterday and was able to sit through his evaluation. He was partially cooperative, inetrmittently irritable and preoccupied with being discharged from the unit. He admitted to feeling better and lazara to think clear since his started taking Seroquel 3 days ago. He denied symptoms of hallucination and o longer delusional about being HIV positive. Patient was seen in the hallway shouting and cursing at staff for not contacting his precinct commanding officer which happens not to be true. Patient remains impulsive and irritable. Court hearing for retension was held this afternoon and hospital was granted permission to continue to hold patient for additional stabilization. Patient remains compliant with his medications and denied any noted side effect. He denied problems with his sleep or appetite. He agreed to an increase in his dose of Seroquel. Review of Systems Constitutional: Denies: fever, chills, weakness, weight change Eyes: Denies: eye pain, vision change Ears, Nose, Throat: Denies: ear pain, throat pain, dental pain, hearing loss, congestion Cardiovascular: Denies: chest pain, palpitations, dyspnea on exertion Respiratory: Denies: cough, dyspnea, wheezes Gastrointestinal: Denies: abdominal pain, nausea, vomiting, diarrhea, constipation Musculoskeletal: Denies: joint swelling, joint pain Neurological: Denies: headache, weakness, numbness, memory loss Objective: Exam Patient orientation: Yes Person, Yes Time, Yes Place Level of alertness: Alert Patient appearance: Appropriate, Well Groomed Behavior: uncooperative, impulsive Psychomotor activity: Normal Eye contact: Maintains Eye Contact Mood description: Euthymic/stable Affect description: congruent with mood, full range Speech pattern: Normal rate, Normal rhythm, Normal tone Speech volume: Normal Thought process: Linear, Goal Oriented Thought content: No Suicidal ideation, No Homicidal ideation, No Overt delusions Perceptual disturbances: No Auditory hallucinations, No Visual hallucinations Judgment: Limited Insight: Partial Results - Vital Signs Vital Signs: Temp Pulse Resp BP Pulse Ox 98.5 F 88 16 124/80 97 10/09/16 09:00 10/09/16 09:00 10/09/16 09:00 10/09/16 09:00 10/01/16 03:46 Assessment and Plan (1) Tactile hallucinations Current visit: Yes Status: Acute (2) Acute psychosis Current visit: No Status: Acute Risks, benefits, side effects, alternatives discussed w/pt: Yes Patient agreeable to treatment: Yes (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
[2016-10-10] MEDS: Nicotine 21 MG PATCH.TD24 TD SCH (09:18)
[2016-10-10] MEDS ORDERED: Nicotine 2 MG GUM BC PRN (09:37)
--- NOTE | 2016-10-10 12:27 | Psychiatry Progress Note ---
Date of Encounter: 10/10/16 Time of Encounter: 12:30 Subjective Interval history: Patient seen this morning. He was calm, cooperative and pleasant. There were no reported incident overnight. Patient per staff has been cooperative and well behaved since his hearing yesterday. He is doing well on his medications and denied any noted side effect. He is sleeping and eating well. Denied any mood or psychotic symptoms including AH/VH/HI/SI. Patient has been spending most of his time in his room and explained he is bored from staying for too long in the hospital. Patient informed about probable discharge tomorrow if he continue to do well and not cause any trouble. Review of Systems Constitutional: Denies: fever, chills, weakness, weight change Eyes: Denies: eye pain, vision change Ears, Nose, Throat: Denies: ear pain, throat pain, dental pain, hearing loss, congestion Cardiovascular: Denies: chest pain, palpitations, dyspnea on exertion Respiratory: Denies: cough, dyspnea, wheezes Gastrointestinal: Denies: abdominal pain, nausea, vomiting, diarrhea, constipation Musculoskeletal: Denies: joint swelling, joint pain Neurological: Denies: headache, weakness, numbness, memory loss Psychiatric: Reports: mood swings Objective: Exam Patient orientation: Yes Person, Yes Time, Yes Place Level of alertness: Alert Patient appearance: Appropriate, Well Groomed Behavior: calm, cooperative Psychomotor activity: Normal Eye contact: Maintains Eye Contact Mood description: Euthymic/stable Affect description: congruent with mood, full range Speech pattern: Normal rate, Normal rhythm, Normal tone Speech volume: Normal Thought process: Linear, Goal Oriented Thought content: No Suicidal ideation, No Homicidal ideation, No Overt delusions Perceptual disturbances: No Auditory hallucinations, No Visual hallucinations Judgment: Fair Insight: Partial Results - Vital Signs Vital Signs: Temp Pulse Resp BP Pulse Ox 98 F 84 18 119/73 97 10/09/16 21:00 10/09/16 21:00 10/09/16 21:00 10/09/16 21:00 10/01/16 03:46 Assessment and Plan (1) Tactile hallucinations Current visit: Yes Status: Acute (2) Acute psychosis Current visit: No Status: Acute Risks, benefits, side effects, alternatives discussed w/pt: Yes Patient agreeable to treatment: Yes (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
[2016-10-10] MEDS: hydrOXYzine pamoate 25 MG CAPSULE PO PRN (15:10)
--- NOTE | 2016-10-11 08:27 | Discharge Summary ---
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 Status: Resolved Medications - Discharge Medications Prescriptions: Quetiapine Fumarate [Seroquel] 150 mg PO HS #30 tab Quetiapine Fumarate [Seroquel] 50 mg PO QAM #30 tab Quetiapine Fumarate [Seroquel] 50 mg PO QAM #30 tab 10/11/16 [Rx] Quetiapine Fumarate [Seroquel] 150 mg PO HS #30 tab 10/11/16 [Rx] Allergies No Known Allergies Allergy (Verified 03/09/16 20:34) Results Procedures and tests throughout hospitalization: Completed Lab Orders Category Date Time Status HIV-1&2 Antibody & p24 Ag Stat Lab 10/03/16 14:37 Completed Provider Date of admission: 10/01/16 16:31 Primary care physician: PCP NO Discharging clinician: Aditi Whitfield Assessment and Plan - Patient/Caregiver Discharge Instructions Activity: resume usual activities as tolerated Diet: regular diet - Follow up Plan Follow up with: [facility] [Outside] Rukhsana Cai [Advanced Practice Nurse] - Disposition: Home, Self-Care Hospital Course Hospital course: Mr. Little is a 20 year old male, single, unemployed, lives between problems with a h/o of schizophrenia, ?Biplar disorder, multiple inpatient hospitalization, h/o self injurious behavior, h/o polysustance use disorder, h/ o of medication and aftercare noncompliance, multiple encounters with the law, currently on probation no significant medical hx who presented to the ER claiming he had worms crawling under his skin and coming out of the chicken he was eating. Not suicidal or homicidal but actively psychotic. Responding to IS. Patient was admitted to the floor for stabilization. Patient on admission initially refused all medications demanding to be discharge from the unit. He was last discharge on Risperdal which he reportedly stopped taking with complaint sof getting "female boobs" from his medication. Patient finally agreed take Seroquel 7 days into his admission. Court hearing for retention on 10/09/16 was granted for additional stabilization as patient was showing improvement since he started taking his Seroguel. Patient has since been compliant with with his medications and cooperative with staff on the unit. He has showed significant improvement in his symptoms with resolution of his hallucinations and delusions. Patient seen this morning. He was calm, cooperative and well related. There were no reported incident overnight. He reported doing well with no specifc complaints. He remains compliant with his medications and denied any noted side effects. On review of symptoms, he denied any mood or psychotic symptoms including AH/VH/SI/HI. Patient is logical and gola directed with a fair impulse control and judgment. He is psychiatrically stable at present time and no deem at risk to self or others and is able to care for self. Patient agreed to be discharged to his Aunts house. Time spent discussing smoking cessation with patient: 3 to 10 minutes - Time Spent with Patient Total time spent providing and/or coordinating discharge services: Quality - Multiple Antipsychotics Patient discharged on 2 or more antipsychotic medications: No Mental Status Exam - Mental Status Exam Patient orientation: Yes Person, Yes Time, Yes Place Level of alertness: Alert Patient appearance: Appropriate, Well Groomed Behavior: calm, cooperative Psychomotor activity: Normal Eye contact: Maintains Eye Contact Mood description: Euthymic/stable Affect description: congruent with mood, full range Speech pattern: Normal rate, Normal rhythm, Normal tone Speech Volume: Normal Thought process: Linear, Goal Oriented Thought Content: No Suicidal ideation, No Homicidal ideation, No Overt delusions Perceptual Disturbances: No Auditory hallucinations, No Visual hallucinations Judgment: Limited Insight: Partial
[2016-10-11 09:24] VITALS: BP 132/83
== END 2016-10-11 13:10 | disposition home or self-care (01) | DRG 756 ==
LOC: EMEROO 00:06 → 1ANU 16:31 → SUATTDRO 16:31 → 1ANU 17:10
PROVIDERS: ADMIT Psychiatry & Neurology Psychiatry; ATTEND Psychiatry & Neurology Psychiatry

== ENCOUNTER 2017-09-06 17:41 | Inpatient (IN) ==
[2017-09-06] MEDS ORDERED: *HR* LORazepam 2 MG/ML VIAL IM ONE (17:57)
[2017-09-06] MEDS ORDERED: Haloperidol Lactate 5 MG/ML VIAL IM ONE (17:57)
[2017-09-06 18:21] LABS: Basophils % 0.5 %; Hematocrit 45.6 % (37.5-50.1); Hemoglobin 15.2 g/dL (12.9-16.9); Immature Granulocytes % 0.1 % (0-4); Lymphocytes # 1.8 K/mcL (0.6-4.6); Lymphocytes % 23.8 %; Mean Corpuscular HGB Conc 33.3 g/dL (31.6-35.5); Mean Corpuscular Hemoglobin 30.4 pg (28.0-33.3); Mean Corpuscular Volume 91.2 fL (83.0-100.0); Mean Platelet Volume 10.8 fL (9.4-12.4); Monocytes # 0.9 K/mcL (0.0-1.3); Monocytes % 12.6 %; Neutrophils # 4.7 K/mcL (1.6-8.9); Platelet Count 257 K/mcL (140-400); Red Cell Distribution Width 12.9 % (11.5-14.5)
[2017-09-06 18:46] LABS: Acetaminophen < 10 mcg/mL (10-20); BUN/Creatinine Ratio 7 (6-26); Blood Urea Nitrogen 8 mg/dL (6-20); Calcium 10.3 mg/dL (8.6-10.3); Carbon Dioxide 20 mEq/L (23-29); Chloride 106 mEq/L (98-107); Ethanol < 10 mg/dL (Less than 10); Glucose 118 mg/dL (70-105); Osmolality,Calculated 295 (280-300); Potassium 3.2 mEq/L (3.5-5.1); Salicylate < 2.5 mg/dL (15.0-30.0); Sodium 143 mEq/L (136-145); eGFR For African Americans > 60 (> 60); eGFR For Non-African Americans > 60 (> 60)
[2017-09-06 18:55] LABS: Thyroid Stimulating Hormone 1.666 mcIU/mL (0.340-5.600)
[2017-09-06 19:04] LABS: Bilirubin,Urine Negative (Negative); Blood,Urine Negative (Negative); Clarity,Urine Clear (Clear); Color,Urine Yellow (Yellow); Glucose,Urine (UA) Normal (Normal); Ketones,Urine Negative (Negative); Leukocyte Esterase,Urine Negative (Negative); Nitrite,Urine Negative (Negative); PH,Urine 6.5 pH Units (5.0-8.0); Protein,Urine 30 mg/dL (Neg-Trace); Specific Gravity,Urine 1.026 (1.010-1.025); Urobilinogen,Urine Normal (Normal)
[2017-09-06 19:06] LABS: Bacteria,Urine None Seen per hpf (None-Few); Hyaline Casts,Urine None Seen per lpf (None-Few); RBC,Urine 0-3 per hpf (0-3); Squamous Epithelial Cell,Urine Moderate per lpf (None-Few); WBC,Urine 0-3 per hpf (0-3)
--- NOTE | 2017-09-06 20:11 | Emergency Department Note ---
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 Duration: constant History of similar episodes: Yes Improves with: none Worsens with: none Alleged intoxication: No Associated Psychiatric Symptoms: racing thoughts Associated symptoms: Reports: denies other symptoms Treatments prior to arrival: none - Related Data Previous Rx's Medication Instructions Recorded Quetiapine Fumarate [Seroquel] 50 mg PO QAM #30 tab 10/11/16 Quetiapine Fumarate [Seroquel] 150 mg PO HS #30 tab 10/11/16 Allergies Allergy/AdvReac Type Severity Reaction Status Date / Time No Known Allergies Allergy Verified 01/15/17 08:19 All systems ED: reviewed and negative except as stated. Review of Systems: As Per HPI Cardiovascular: Denies: palpitations, dyspnea on exertion Respiratory: Denies: cough, dyspnea, wheezes Gastrointestinal: Denies: nausea, vomiting, diarrhea Musculoskeletal: Denies: back pain, neck pain Integumentary: Denies: rash Neurological: Denies: headache Psychiatric: Reports: visual hallucinations. Denies: anxiety, depression, suicidal thoughts, homicidal thoughts Past Medical History - Past Medical History Attestation: Yes The following information was validated with the patient. Source: patient, other Medical history: Reports: no medical history Surgical history: Reports: no surgical history Psychiatric history: Reports: schizophrenia, previous psychiatric hospitalization - Social History Smoking Status: Current every day smoker Smokeless Tobacco Status: No Alcohol use: Reports: unknown Drug use: Reports: unknown Physical Exam - General Limitations: altered mental status General appearance: anxious - Head Head exam: atraumatic, normocephalic, normal inspection - Eye Eye exam: Present: EOMI, mydriasis - ENT ENT exam: normal exam, normal oropharynx, mucous membranes moist - Chest Chest inspection: Present: normal inspection, symmetric chest wall rise - Respiratory Respiratory exam: Present: normal lung sounds bilaterally - Cardiovascular Cardiovascular exam: Present: normal rhythm, tachycardia, normal heart sounds - Extremities Exam Extremities exam: Present: normal inspection - Back Exam Back exam: Present: normal inspection - Neurological Exam Neurological exam: Present: alert - Psychiatric Psychiatric exam: Present: agitated, anxious, manic - Skin Skin exam: Present: warm, dry, intact, normal color Course Course Narrative: Patient seen and examined some arrival by EMS. Patient presents here today and acute psychosis. Patient has visual hallucinations and is argumentative and combative and threatening to the EMS staff. Patient is been here several times in past for drug related issues. He also has a history of psychiatric disease. Patient is tangential in conversation. Vital signs are otherwise stable. Is a patient was requested to get into a gown in the emergency room he became argumentative and threatening the staff members. Because of patient's safety as well as his staff safety was determined the patient will be placed in soft restraints provided with chemical sedation this time. Screening psychiatric evaluation will be started this point. Patient does have some aspect of a chemical toxidrome on board considering he does have dilated pupils and broad daylight here in the emergency room. Patient otherwise denies any other symptoms or issues initially prior to the sedation. Lungs are clear heart was regular but tachycardic abdomen is soft. No other signs of trauma or injury were noted. Patient did not have any acute signs of head injury or other etiology at this point. Disposition pending the full workup and treatment course. Sensation is effective at this time. We will obtain monitor his treatment course is established - Reevaluation(s) Reevaluation #1: Patient will be signed out to the overnight physician Dr. Molina. Once the patient wakes up he will be evaluated by the psychiatric team as well as he is not acutely in distress. Patient is otherwise clinically stable at this time. Labs have been addressed at this point. Time: 23:00 Vital Signs Temperature 98.3 F 09/06/17 17:43 Pulse Rate 129 09/06/17 17:43 Respiratory Rate 20 09/06/17 17:43 Blood Pressure 175/88 09/06/17 17:43 O2 Sat by Pulse Oximetry 94 09/06/17 17:43 Temperature 98.6 F 09/06/17 19:11 Pulse Rate 65 09/06/17 19:11 Respiratory Rate 16 09/06/17 19:11 Blood Pressure 102/62 09/06/17 19:11 O2 Sat by Pulse Oximetry 94 09/06/17 18:15 Oxygen Delivery Oxygen Delivery Room Air Psych - MDM Narrative Medical decision making narrative: Acute psychosis, hallucinations - Lab Data Lab results reviewed: Yes I reviewed the patient's lab results. Result diagrams: 09/06/17 18:09 09/06/17 18:09 Lab Results 09/06/17 09/06/17 09/06/17 Range/Units 18:09 18:09 18:41 WBC 7.4 (4.3-11.1) K/mcL RBC 5.00 (4.19-5.50) M/mcL Hgb 15.2 (12.9-16.9) g/dL Hct 45.6 (37.5-50.1) % MCV 91.2 (83.0-100.0) fL MCH 30.4 (28.0-33.3) pg MCHC 33.3 (31.6-35.5) g/dL RDW 12.9 (11.5-14.5) % Plt Count 257 (140-400) K/mcL MPV 10.8 (9.4-12.4) fL Immature Gran % 0.1 (0-4) % Seg Neutrophils % 63.0 % Lymphocytes % 23.8 % Monocytes % 12.6 % Eosinophils % 0.0 % Basophils % 0.5 % Neutrophils # 4.7 (1.6-8.9) K/mcL Lymphocytes # 1.8 (0.6-4.6) K/mcL Monocytes # 0.9 (0.0-1.3) K/mcL Eosinophils # 0.0 (0.0-0.6) K/mcL Basophils # 0.0 (0.0-0.2) K/mcL Sodium 143 (136-145) mEq/L Potassium 3.2 L (3.5-5.1) mEq/L Chloride 106 (98-107) mEq/L Carbon Dioxide 20 L (23-29) mEq/L BUN 8 (6-20) mg/dL Creatinine 1.20 (0.70-1.30) mg/dL Est GFR ( Amer) > 60 (> 60) Est GFR (Non-Af Amer) > 60 (> 60) BUN/Creatinine Ratio 7 (6-26) Glucose 118 H (70-105) mg/dL Calculated Osmolality 295 (280-300) Calcium 10.3 (8.6-10.3) mg/dL TSH 1.666 (0.340-5.600) mcIU/mL Urine Color Yellow (Yellow) Urine Clarity Clear (Clear) Urine pH 6.5 (5.0-8.0) pH Units Ur Specific [place] 1.026 H (1.010-1.025) Urine Protein 30 H (Neg-Trace) mg/dL Urine Glucose (UA) Normal (Normal) mg/dL Urine Ketones Negative (Negative) mg/dL Urine Blood Negative (Negative) Urine Nitrite Negative (Negative) Urine Bilirubin Negative (Negative) Urine Urobilinogen Normal (Normal) mg/dL Ur Leukocyte Esterase Negative (Negative) Urine Microscopic RBC 0-3 (0-3) per hpf Urine Microscopic WBC 0-3 (0-3) per hpf Ur Squamous Epith Cells Moderate H (None-Few) per lpf Urine Bacteria None Seen (None-Few) per hpf Hyaline Casts None Seen (None-Few) per lpf Salicylates < 2.5 L (15.0-30.0) mg/dL Urine Opiates Screen (Cnwyjk=173) ng/mL Acetaminophen < 10 L (10-20) mcg/mL Ur Barbiturates Screen (Cyhwqo=168) ng/mL Ur Phencyclidine Scrn (Cutoff=25) ng/mL Ur Amphetamines Screen (Jenszy=0376) ng/mL U Benzodiazepines Scrn (Jbapcr=982) ng/mL Urine Cocaine Screen (Cutoff= 300) ng/mL U Marijuana (THC) Screen (Cutoff = 50) ng/mL Ethyl Alcohol < 10 (Less than 10) mg/dL 09/06/17 Range/Units 18:41 WBC (4.3-11.1) K/mcL RBC (4.19-5.50) M/mcL Hgb (12.9-16.9) g/dL Hct (37.5-50.1) % MCV (83.0-100.0) fL MCH (28.0-33.3) pg MCHC (31.6-35.5) g/dL RDW (11.5-14.5) % Plt Count (140-400) K/mcL MPV (9.4-12.4) fL Immature Gran % (0-4) % Seg Neutrophils % % Lymphocytes % % Monocytes % % Eosinophils % % Basophils % % Neutrophils # (1.6-8.9) K/mcL Lymphocytes # (0.6-4.6) K/mcL Monocytes # (0.0-1.3) K/mcL Eosinophils # (0.0-0.6) K/mcL Basophils # (0.0-0.2) K/mcL Sodium (136-145) mEq/L Potassium (3.5-5.1) mEq/L Chloride (98-107) mEq/L Carbon Dioxide (23-29) mEq/L BUN (6-20) mg/dL Creatinine (0.70-1.30) mg/dL Est GFR ( Amer) (> 60) Est GFR (Non-Af Amer) (> 60) BUN/Creatinine Ratio (6-26) Glucose (70-105) mg/dL Calculated Osmolality (280-300) Calcium (8.6-10.3) mg/dL TSH (0.340-5.600) mcIU/mL Urine Color (Yellow) Urine Clarity (Clear) Urine pH (5.0-8.0) pH Units Ur Specific [place] (1.010-1.025) Urine Protein (Neg-Trace) mg/dL Urine Glucose (UA) (Normal) mg/dL Urine Ketones (Negative) mg/dL Urine Blood (Negative) Urine Nitrite (Negative) Urine Bilirubin (Negative) Urine Urobilinogen (Normal) mg/dL Ur Leukocyte Esterase (Negative) Urine Microscopic RBC (0-3) per hpf Urine Microscopic WBC (0-3) per hpf Ur Squamous Epith Cells (None-Few) per lpf Urine Bacteria (None-Few) per hpf Hyaline Casts (None-Few) per lpf Salicylates (15.0-30.0) mg/dL Urine Opiates Screen Negative (Dqnsxv=450) ng/mL Acetaminophen (10-20) mcg/mL Ur Barbiturates Screen Negative (Glasms=523) ng/mL Ur Phencyclidine Scrn Negative (Cutoff=25) ng/mL Ur Amphetamines Screen Positive H (Oluxbe=1930) ng/mL U Benzodiazepines Scrn Positive H (Irxehf=310) ng/mL Urine Cocaine Screen Positive H (Cutoff= 300) ng/mL U Marijuana (THC) Screen Positive H (Cutoff = 50) ng/mL Ethyl Alcohol (Less than 10) mg/dL Psychiatric Medical Clearance - Medical Clearance Checklist Does the patient have a NEW psychiatric condition?: No Any abnormalities indicating possible medical illness?: No Any history of medical issues?: No Medical History: No Social History Section defined Any abnormal vital signs prior to transfer?: No Current Vitals: Last Vital Signs Temp 98.6 F 09/06/17 19:11 Pulse 65 09/06/17 19:11 Resp 16 09/06/17 19:11 BP 102/62 09/06/17 19:11 Pulse Ox 94 09/06/17 18:15 Is the patient intoxicated or cognitively impaired?: Yes Psychiatric Lab Panel: Drug Levels and Toxicity 09/06/17 09/06/17 18:09 18:41 Urine Opiates Screen Negative Acetaminophen < 10 L Ur Barbiturates Screen Negative Ur Phencyclidine Scrn Negative Ur Amphetamines Screen Positive H U Benzodiazepines Scrn Positive H Urine Cocaine Screen Positive H U Marijuana (THC) Screen Positive H Ethyl Alcohol < 10 Any abnormalities on the physical exam?: No Any abnormal labs?: No Abnormal Labs: Abnormal lab results Potassium 3.2 mEq/L (3.5-5.1) L 09/06/17 18:09 Carbon Dioxide 20 mEq/L (23-29) L 09/06/17 18:09 Glucose 118 mg/dL (70-105) H 09/06/17 18:09 Ur Specific [place] 1.026 (1.010-1.025) H 09/06/17 18:41 Urine Protein 30 mg/dL (Neg-Trace) H 09/06/17 18:41 Ur Squamous Epith Cells Moderate per lpf (None-Few) H 09/06/17 18:41 Salicylates < 2.5 mg/dL (15.0-30.0) L 09/06/17 18:09 Acetaminophen < 10 mcg/mL (10-20) L 09/06/17 18:09 Ur Amphetamines Screen Positive ng/mL (Gyaqkg=7431) H 09/06/17 18:41 U Benzodiazepines Scrn Positive ng/mL (Obhubf=776) H 09/06/17 18:41 Urine Cocaine Screen Positive ng/mL (Cutoff= 300) H 09/06/17 18:41 U Marijuana (THC) Screen Positive ng/mL (Cutoff = 50) H 09/06/17 18:41 Does the patient require durable medical equiptment?: No Is the patient ambulatory?: Yes Is the patient a fall risk?: No Has the patient been medically cleared?: Yes Statement of Medical Clearance: I have evaluated the patient, reviewed diagnostic information, and certify that the patient's medical condition is sufficiently stable that transfer to the psychiatric unit does not pose a significant risk of deterioration.
[2017-09-06 20:21] LABS: Amphetamine Screen,Urine Positive ng/mL (Cutoff=1000); Barbiturate Screen,Urine Negative ng/mL (Cutoff=200); Benzodiazepines Screen,Urine Positive ng/mL (Cutoff=200); Cannabinoid Screen,Urine Positive ng/mL (Cutoff = 50); Cocaine Screen,Urine Positive ng/mL (Cutoff= 300); Opiate Screen,Urine Negative ng/mL (Cutoff=300); Phencyclidine Screen,Urine Negative ng/mL (Cutoff=25)
--- NOTE | 2017-09-07 01:37 | Emergency Department Note ---
Disposition Clinical Impression: Acute psychosis Disposition: Still a Patient Condition: Good Referrals: NONE,PCP [Primary Care Provider] - Forms: ED Satisfaction Letter General Adult HPI - General Chief complaint: ED Psychiatric Symptoms Stated complaint: Psych Eval Time Seen by Provider: 09/06/17 17:48 Source: family, EMS Mode of arrival: EMS Limitations: altered mental status - History of Present Illness Pain Scale: 0 - Related Data Previous Rx's Medication Instructions Recorded Quetiapine Fumarate [Seroquel] 50 mg PO QAM #30 tab 10/11/16 Quetiapine Fumarate [Seroquel] 150 mg PO HS #30 tab 10/11/16 Allergies Allergy/AdvReac Type Severity Reaction Status Date / Time No Known Allergies Allergy Verified 01/15/17 08:19 Cardiovascular: Denies: palpitations, dyspnea on exertion Respiratory: Denies: cough, dyspnea, wheezes Gastrointestinal: Denies: nausea, vomiting, diarrhea Musculoskeletal: Denies: back pain, neck pain Integumentary: Denies: rash Neurological: Denies: headache Psychiatric: Reports: visual hallucinations. Denies: anxiety, depression, suicidal thoughts, homicidal thoughts Past Medical History - Past Medical History Medical history: Reports: no medical history Surgical history: Reports: no surgical history Psychiatric history: Reports: schizophrenia, previous psychiatric hospitalization - Social History Smoking Status: Current every day smoker Smokeless Tobacco Status: No Alcohol use: Reports: unknown Drug use: Reports: unknown Physical Exam - General Limitations: altered mental status General appearance: anxious Course - Reevaluation(s) Reevaluation #1: She received in signout by Dr. Johnnie Allen at 2300. Patient has been worked up for medical clearance and to be evaluated by mental health services. Patient was a bit belligerent and agitated he was medicated and was sedated patient is now woken will be reevaluated by mental health services. Disposition pending Time: 01:36 Vital Signs Temperature 98.3 F 09/06/17 17:43 Pulse Rate 129 09/06/17 17:43 Respiratory Rate 20 09/06/17 17:43 Blood Pressure 175/88 09/06/17 17:43 O2 Sat by Pulse Oximetry 94 09/06/17 17:43 Temperature 98.6 F 09/06/17 19:11 Pulse Rate 65 09/06/17 19:11 Respiratory Rate 16 06/15/18 19:11 Blood Pressure 102/62 09/06/17 19:11 O2 Sat by Pulse Oximetry 94 09/06/17 18:15 Oxygen Delivery Oxygen Delivery Room Air Medical Decision Making - Lab Data Result diagrams: 09/06/17 18:09 09/06/17 18:09 Lab Results 09/06/17 09/06/17 09/06/17 Range/Units 18:09 18:09 18:41 WBC 7.4 (4.3-11.1) K/mcL RBC 5.00 (4.19-5.50) M/mcL Hgb 15.2 (12.9-16.9) g/dL Hct 45.6 (37.5-50.1) % MCV 91.2 (83.0-100.0) fL MCH 30.4 (28.0-33.3) pg MCHC 33.3 (31.6-35.5) g/dL RDW 12.9 (11.5-14.5) % Plt Count 257 (140-400) K/mcL MPV 10.8 (9.4-12.4) fL Immature Gran % 0.1 (0-4) % Seg Neutrophils % 63.0 % Lymphocytes % 23.8 % Monocytes % 12.6 % Eosinophils % 0.0 % Basophils % 0.5 % Neutrophils # 4.7 (1.6-8.9) K/mcL Lymphocytes # 1.8 (0.6-4.6) K/mcL Monocytes # 0.9 (0.0-1.3) K/mcL Eosinophils # 0.0 (0.0-0.6) K/mcL Basophils # 0.0 (0.0-0.2) K/mcL Sodium 143 (136-145) mEq/L Potassium 3.2 L (3.5-5.1) mEq/L Chloride 106 (98-107) mEq/L Carbon Dioxide 20 L (23-29) mEq/L BUN 8 (6-20) mg/dL Creatinine 1.20 (0.70-1.30) mg/dL Est GFR ( Amer) > 60 (> 60) Est GFR (Non-Af Amer) > 60 (> 60) BUN/Creatinine Ratio 7 (6-26) Glucose 118 H (70-105) mg/dL Calculated Osmolality 295 (280-300) Calcium 10.3 (8.6-10.3) mg/dL TSH 1.666 (0.340-5.600) mcIU/mL Urine Color Yellow (Yellow) Urine Clarity Clear (Clear) Urine pH 6.5 (5.0-8.0) pH Units Ur Specific [place] 1.026 H (1.010-1.025) Urine Protein 30 H (Neg-Trace) mg/dL Urine Glucose (UA) Normal (Normal) mg/dL Urine Ketones Negative (Negative) mg/dL Urine Blood Negative (Negative) Urine Nitrite Negative (Negative) Urine Bilirubin Negative (Negative) Urine Urobilinogen Normal (Normal) mg/dL Ur Leukocyte Esterase Negative (Negative) Urine Microscopic RBC 0-3 (0-3) per hpf Urine Microscopic WBC 0-3 (0-3) per hpf Ur Squamous Epith Cells Moderate H (None-Few) per lpf Urine Bacteria None Seen (None-Few) per hpf Hyaline Casts None Seen (None-Few) per lpf Salicylates < 2.5 L (15.0-30.0) mg/dL Urine Opiates Screen (Hphrzz=019) ng/mL Acetaminophen < 10 L (10-20) mcg/mL Ur Barbiturates Screen (Uyjexd=742) ng/mL Ur Phencyclidine Scrn (Cutoff=25) ng/mL Ur Amphetamines Screen (Cgjqae=3329) ng/mL U Benzodiazepines Scrn (Wuvmic=101) ng/mL Urine Cocaine Screen (Cutoff= 300) ng/mL U Marijuana (THC) Screen (Cutoff = 50) ng/mL Ethyl Alcohol < 10 (Less than 10) mg/dL 09/06/17 Range/Units 18:41 WBC (4.3-11.1) K/mcL RBC (4.19-5.50) M/mcL Hgb (12.9-16.9) g/dL Hct (37.5-50.1) % MCV (83.0-100.0) fL MCH (28.0-33.3) pg MCHC (31.6-35.5) g/dL RDW (11.5-14.5) % Plt Count (140-400) K/mcL MPV (9.4-12.4) fL Immature Gran % (0-4) % Seg Neutrophils % % Lymphocytes % % Monocytes % % Eosinophils % % Basophils % % Neutrophils # (1.6-8.9) K/mcL Lymphocytes # (0.6-4.6) K/mcL Monocytes # (0.0-1.3) K/mcL Eosinophils # (0.0-0.6) K/mcL Basophils # (0.0-0.2) K/mcL Sodium (136-145) mEq/L Potassium (3.5-5.1) mEq/L Chloride (98-107) mEq/L Carbon Dioxide (23-29) mEq/L BUN (6-20) mg/dL Creatinine (0.70-1.30) mg/dL Est GFR ( Amer) (> 60) Est GFR (Non-Af Amer) (> 60) BUN/Creatinine Ratio (6-26) Glucose (70-105) mg/dL Calculated Osmolality (280-300) Calcium (8.6-10.3) mg/dL TSH (0.340-5.600) mcIU/mL Urine Color (Yellow) Urine Clarity (Clear) Urine pH (5.0-8.0) pH Units Ur Specific [place] (1.010-1.025) Urine Protein (Neg-Trace) mg/dL Urine Glucose (UA) (Normal) mg/dL Urine Ketones (Negative) mg/dL Urine Blood (Negative) Urine Nitrite (Negative) Urine Bilirubin (Negative) Urine Urobilinogen (Normal) mg/dL Ur Leukocyte Esterase (Negative) Urine Microscopic RBC (0-3) per hpf Urine Microscopic WBC (0-3) per hpf Ur Squamous Epith Cells (None-Few) per lpf Urine Bacteria (None-Few) per hpf Hyaline Casts (None-Few) per lpf Salicylates (15.0-30.0) mg/dL Urine Opiates Screen Negative (Cdhxfs=319) ng/mL Acetaminophen (10-20) mcg/mL Ur Barbiturates Screen Negative (Ioihst=517) ng/mL Ur Phencyclidine Scrn Negative (Cutoff=25) ng/mL Ur Amphetamines Screen Positive H (Qohhwz=7597) ng/mL U Benzodiazepines Scrn Positive H (Jywvep=104) ng/mL Urine Cocaine Screen Positive H (Cutoff= 300) ng/mL U Marijuana (THC) Screen Positive H (Cutoff = 50) ng/mL Ethyl Alcohol (Less than 10) mg/dL
[2017-09-07] MEDS ORDERED: Mag Hydrox/Al Hydrox/Simeth 30 ML UDC PO PRN (07:30)
[2017-09-07] MEDS ORDERED: traZODone 50 MG TABLET PO PRN (07:30)
[2017-09-07] MEDS ORDERED: MOM Conc 10 ML UD.LIQ PO PRN (07:30)
[2017-09-07] MEDS ORDERED: Haloperidol Lactate 5 MG/ML VIAL IM PRN (07:30)
[2017-09-07] MEDS ORDERED: *HR* LORazepam 2 MG/ML VIAL IM PRN (07:30)
[2017-09-07] MEDS ORDERED: Acetaminophen 325 MG TABLET PO PRN (07:30)
[2017-09-07] MEDS ORDERED: hydrOXYzine pamoate 25 MG CAPSULE PO PRN (07:30)
[2017-09-07] MEDS ORDERED: Ondansetron ODT 4 MG TAB.RAPDIS SL PRN (07:34)
[2017-09-07] MEDS ORDERED: Baclofen 10 MG TABLET PO PRN (07:34)
--- NOTE | 2017-09-07 18:33 | Psychiatry History & Physical ---
Date of Encounter: 09/07/17 Time of Encounter: 18:30 History of Present Illness Patient Stated Chief Complaint: I took meth and was halucinating Medicare Admission Attestation: For traditional Medicare patients the provided hospital inpatient services are reasonable and necessary and in the case of services not specified as inpatient -only under 42 CFR 419.22 (n), that they are appropriately provided as inpatient services in accordance 42 CFR 412.3. For Critical Access Hospital the patient may reasonably be expected to be discharged or transferred to a hospital within 96 hours after admission to the Critical Access Hospital. Admitted From: Emergency Dept Plans for Post Hospital Care: Home History of Present Illness: Mr. Little is a 21 year old male The patient reports that he was in his usual state of health. Notes a history of abusing methamphetamine. This is previously led to hallucinations. 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 Then he went back and used methamphetamine. His presentation to the emergency room include visual auditory and tactile hallucinations. The patient also reports using cocaine benzodiazepines and cannabis. The patient is previously known to this unit and a previous diagnosis of acute psychosis is been given. However the patient had a period of remission when not abusing methamphetamine. Furthermore the head CT was read as normal. 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 The past medical history is negative for surgeries negative for illnesses negative for allergies. The family history is significant for mother who use drugs and a and used alcohol but negative for suicide. Social history the patient was living with a friend the friend said he could not stay there is hallucinating went to visit his grandmother said that he could not stay because he was hallucinating. His friend may not let him go back to his home although patient might still go there the patient reports no rehabilitation from drugs or alcohol. In the physical examination the patient had multiple scratches And healed scars over the left and right arm. This patient has Ogata's disease, anmed after Ravi Nick, the uzbek content coordinator who invested [employer] meth. The treatment for this condition for this patient has abstinence. At this point the patient does not wish to have any medicines other than the when necessary medicines he feels that he will get better with sleep and rest is not actively hallucinating at the time of the examination The patient does not appear to have primary psychiatric disorder such as schizophrenia therefore a diagnosis of hallucinations due to general medical condition was given. And this may help in determining the etiology of his psychiatric disturbances Past Med Surg Social Fam HX - Past Medical History Source: patient Medical history: no medical history - Past Psychiatric History Psychiatric history: Reports: previous psychiatric hospitalization Family psychiatric history: Yes Family History of Suicide: None - Social History Smoking Status: Current every day smoker Smokeless Tobacco Status: No Alcohol use: unknown Drug use: unknown Occupational status: employed Current living situation: Home - Independent Activity Level: Independent ambulation Recent Out of Country Travel Within the Last 8 Weeks: Yes Exposure or Possible Exposure to Illness During Travel: Yes Medications & Allergies No Known Home Drugs 09/07/17 [History] 3 Allergy/AdvReac Type Severity Reaction Status Date / Time No Known Allergies Allergy Verified 01/15/17 08:19 Review of Systems Psychiatric: Reports: auditory hallucinations, visual hallucinations Exam - HEENT Head exam IM: Present: atraumatic Eye exam IM: Present: EOMI, normal appearance, PERRL ENT exam IM: Present: normal exam - Neurological Neurological exam: Present: CN II-XII intact - Respiratory Respiratory exam IM: Present: CTAB - GI/Abdominal GI/Abdominal exam IM: Present: normal bowel sounds, soft. Absent: tenderness - Extremities Extremities exam IM: Present: full ROM - Skin Skin exam IM: Present: dry, warm - Constitutional Vitals: Temp Pulse Resp BP Pulse Ox 97.4 F L 64 16 112/74 100 09/07/17 09:00 09/07/17 09:00 09/07/17 09:00 09/07/17 09:00 09/07/17 06:30 General appearance: age & developmentally appropriate, well-groomed, well- nourished - Musculoskeletal Gait: normal Station: relaxed Strength & Tone: normal for patient - Psychiatric Patient Orientation: Yes Person, Yes Time, Yes Place Level of alertness: Alert Behavior: calm, cooperative Psychomotor activity: Normal Eye Contact: Maintains Eye Contact Mood Description: Euthymic/stable Affect description: congruent with mood, full range Speech Volume: Normal Speech pattern: normal rate, normal rhythm, normal tone, fluent, spontaneous Language & Vocabulary: consistent with education Thought Process: Linear, Goal Oriented Thought Content: No Suicidal ideation, No Homicidal ideation, No Overt delusions Perceptual Disturbances: Yes Auditory hallucinations, Yes Visual hallucinations , Yes Tactile hallucinations Attention Span Ability: Capable of Focused Attention Memory Description: Grossly Intact Patient Reliability: Reliable Historian Fund of knowledge: Yes abstraction ability, Yes average, Yes aware of current events Intelligence Estimate: Average Judgment: Limited Insight: Minimal Results - Labs Labs: Laboratory Last Values WBC 7.4 K/mcL (4.3-11.1) 09/06/17 18:09 RBC 5.00 M/mcL (4.19-5.50) 09/06/17 18:09 Hgb 15.2 g/dL (12.9-16.9) 09/06/17 18:09 Hct 45.6 % (37.5-50.1) 09/06/17 18:09 MCV 91.2 fL (83.0-100.0) 09/06/17 18:09 MCH 30.4 pg (28.0-33.3) 09/06/17 18:09 MCHC 33.3 g/dL (31.6-35.5) 09/06/17 18:09 RDW 12.9 % (11.5-14.5) 09/06/17 18:09 Plt Count 257 K/mcL (140-400) 09/06/17 18:09 MPV 10.8 fL (9.4-12.4) 09/06/17 18:09 Immature Gran % 0.1 % (0-4) 09/06/17 18:09 Seg Neutrophils % 63.0 % 09/06/17 18:09 Lymphocytes % 23.8 % 09/06/17 18:09 Monocytes % 12.6 % 09/06/17 18:09 Eosinophils % 0.0 % 09/06/17 18:09 Basophils % 0.5 % 09/06/17 18:09 Neutrophils # 4.7 K/mcL (1.6-8.9) 09/06/17 18:09 Lymphocytes # 1.8 K/mcL (0.6-4.6) 09/06/17 18:09 Monocytes # 0.9 K/mcL (0.0-1.3) 09/06/17 18:09 Eosinophils # 0.0 K/mcL (0.0-0.6) 09/06/17 18:09 Basophils # 0.0 K/mcL (0.0-0.2) 09/06/17 18:09 Sodium 143 mEq/L (136-145) 09/06/17 18:09 Potassium 3.2 mEq/L (3.5-5.1) L 09/06/17 18:09 Chloride 106 mEq/L (98-107) 09/06/17 18:09 Carbon Dioxide 20 mEq/L (23-29) L 09/06/17 18:09 BUN 8 mg/dL (6-20) 09/06/17 18:09 Creatinine 1.20 mg/dL (0.70-1.30) 09/06/17 18:09 Est GFR ( Amer) > 60 (> 60) 09/06/17 18:09 Est GFR (Non-Af Amer) > 60 (> 60) 09/06/17 18:09 BUN/Creatinine Ratio 7 (6-26) 09/06/17 18:09 Glucose 118 mg/dL (70-105) H 09/06/17 18:09 Calculated Osmolality 295 (280-300) 09/06/17 18:09 Calcium 10.3 mg/dL (8.6-10.3) 09/06/17 18:09 TSH 1.666 mcIU/mL (0.340-5.600) 09/06/17 18:09 Urine Color Yellow (Yellow) 09/06/17 18:41 Urine Clarity Clear (Clear) 09/06/17 18:41 Urine pH 6.5 pH Units (5.0-8.0) 09/06/17 18:41 Ur Specific [place] 1.026 (1.010-1.025) H 09/06/17 18:41 Urine Protein 30 mg/dL (Neg-Trace) H 09/06/17 18:41 Urine Glucose (UA) Normal mg/dL (Normal) 09/06/17 18:41 Urine Ketones Negative mg/dL (Negative) 09/06/17 18:41 Urine Blood Negative (Negative) 09/06/17 18:41 Urine Nitrite Negative (Negative) 09/06/17 18:41 Urine Bilirubin Negative (Negative) 09/06/17 18:41 Urine Urobilinogen Normal mg/dL (Normal) 09/06/17 18:41 Ur Leukocyte Esterase Negative (Negative) 09/06/17 18:41 Urine Microscopic RBC 0-3 per hpf (0-3) 09/06/17 18:41 Urine Microscopic WBC 0-3 per hpf (0-3) 09/06/17 18:41 Ur Squamous Epith Cells Moderate per lpf (None-Few) H 09/06/17 18:41 Urine Bacteria None Seen per hpf (None-Few) 09/06/17 18:41 Hyaline Casts None Seen per lpf (None-Few) 09/06/17 18:41 Salicylates < 2.5 mg/dL (15.0-30.0) L 09/06/17 18:09 Urine Opiates Screen Negative ng/mL (Gvayst=551) 09/06/17 18:41 Acetaminophen < 10 mcg/mL (10-20) L 09/06/17 18:09 Ur Barbiturates Screen Negative ng/mL (Cdyedr=477) 09/06/17 18:41 Ur Phencyclidine Scrn Negative ng/mL (Cutoff=25) 09/06/17 18:41 Ur Amphetamines Screen Positive ng/mL (Dhvaxn=1919) H 09/06/17 18:41 U Benzodiazepines Scrn Positive ng/mL (Zmzwhi=129) H 09/06/17 18:41 Urine Cocaine Screen Positive ng/mL (Cutoff= 300) H 09/06/17 18:41 U Marijuana (THC) Screen Positive ng/mL (Cutoff = 50) H 09/06/17 18:41 Ethyl Alcohol < 10 mg/dL (Less than 10) 09/06/17 18:09 Assessment and Plan (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 Current visit: Yes Status: Acute Plan: Admit inpatient for safety and stabilization, Close observation, Suicide Precautions per unit protocol, Encourage participation in unit milieu, Secure weapons Risks, benefits, side effects, alternatives discussed w/pt: Yes Patient agreeable to treatment: Yes Plans for Post Hospital Care: Home Estimated Length of Stay (Days): 3 (2) 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 Current visit: Yes Status: Acute Plan: Admit inpatient for safety and stabilization, Close observation, Suicide Precautions per unit protocol, Encourage participation in unit milieu, Monitor sleep, Monitor appetite, Secure weapons Risks, benefits, side effects, alternatives discussed w/pt: Yes Patient agreeable to treatment: Yes Plans for Post Hospital Care: Home (3) Cocaine dependence with cocaine-induced psychotic disorder with delusions Current visit: Yes Status: Acute Plan: Admit inpatient for safety and stabilization, Close observation, Suicide Precautions per unit protocol, Encourage participation in unit milieu, Secure weapons Risks, benefits, side effects, alternatives discussed w/pt: Yes Patient agreeable to treatment: Yes Plans for Post Hospital Care: Home
--- NOTE | 2017-09-08 11:52 | Psychiatry Progress Note ---
Date of Encounter: 09/08/17 Time of Encounter: 10:00 Subjective Interval history: Mr. Little is a 21 year old male who presents with a hx of methamphetamine and cocaine abuse. Pt noted that this is previously led to hallucinations. Pt presentation to the emergency room for hallucinations, include visual auditory and tactile hallucinations. The patient also reports using cocaine benzodiazepines and cannabis abuse. The patient is previously known to this unit and a previous diagnosis of acute psychosis is been given. However the patient had a period of remission when not abusing methamphetamine. Pt denied any side effects to current medications. Pt noted he felt safe and comfortable on the unit. Pt was in agreement with current treatment plan. Pt noted that he is doing alright today. Pt noted he slept alright last night. Pt noted his appetite is decent. Pt rated his depression a 3, on a scale of zero to ten with ten being the worst and zero being none. Pt rate his anxiety a 0, on the same scale. Pt denied any current auditory or visiual hallucinations. Pt denied any current thoughts to harm himself or anyone else. Pt agreed to initate bupropion for mood and reduce stimulant cravings. MSE: Alert and Oriented x4 Appearance: neatly groomed dressed in appropriate civilian attire Behavior: friendly, courteous, polite Speech: Fluent, normal tone, normal rate Mood: okay Affect: mood congruent Thought content: no HI noted, no SI noted, no delusions noted Psychosis: PT currently not responding to internal stimuli Thought Process: Linear coherent goal directed Judgment: questionable/fair. Insight: questionable/fair . 1.Interval hx 2.Continue current medications 3.Review current labs 4.Pt had an opportunity to ask questions and discuss current treatment plan. 5.Supportive therapy was provided 6.Pt encouraged to consider group or individual therapy 7.Pt was in agreement with treatment plan. 8.Pt was educated on the risks benefits and side effects of current medications. 9. Pt was educated on the risks benefits and side-effects of wellbutrin including no medication, pt was in agreement. Review of Systems Constitutional: Denies: fever, chills, weakness, weight change Eyes: Denies: eye pain, vision change Ears, Nose, Throat: Denies: ear pain, throat pain, dental pain, hearing loss, congestion Cardiovascular: Denies: chest pain, palpitations, dyspnea on exertion Respiratory: Denies: cough, dyspnea, wheezes Gastrointestinal: Denies: abdominal pain, nausea, vomiting, diarrhea, constipation Musculoskeletal: Denies: joint swelling, joint pain Neurological: Denies: headache, weakness, numbness, memory loss Psychiatric: Reports: auditory hallucinations, visual hallucinations Results - Vital Signs Vital Signs: Temp Pulse Resp BP Pulse Ox 98.2 F 69 16 119/74 100 09/08/17 09:00 09/08/17 09:00 09/08/17 09:00 09/08/17 09:00 09/07/17 06:30 Assessment and Plan (1) Suicidal ideation Current visit: No Status: Acute Plan: Continue hospitalization, Close observation, Suicide Precautions per unit protocol, Encourage participation in unit milieu, Group Therapy, Monitor sleep, Monitor appetite Risks, benefits, side effects, alternatives discussed w/pt: Yes Patient agreeable to treatment: Yes (2) Hallucinogen abuse Current visit: No Status: Acute Plan: Continue hospitalization, Close observation, Suicide Precautions per unit protocol, Encourage participation in unit milieu, Group Therapy, Monitor sleep, Monitor appetite Risks, benefits, side effects, alternatives discussed w/pt: Yes Patient agreeable to treatment: Yes (3) Cannabis abuse Current visit: No Status: Acute Plan: Continue hospitalization, Close observation, Suicide Precautions per unit protocol, Encourage participation in unit milieu, Group Therapy, Monitor sleep, Monitor appetite Risks, benefits, side effects, alternatives discussed w/pt: Yes Patient agreeable to treatment: Yes (4) Psychosis Current visit: No Status: Acute Plan: Continue hospitalization, Close observation, Suicide Precautions per unit protocol, Encourage participation in unit milieu, Group Therapy, Monitor sleep, Monitor appetite Risks, benefits, side effects, alternatives discussed w/pt: Yes Patient agreeable to treatment: Yes Qualifiers: Psychosis type: brief psychotic disorder Qualified Code(s): F23 - Brief psychotic disorder (5) Polysubstance (excluding opioids) dependence, binge pattern Current visit: No Status: Chronic Plan: Continue hospitalization, Close observation, Suicide Precautions per unit protocol, Encourage participation in unit milieu, Group Therapy, Monitor sleep, Monitor appetite Risks, benefits, side effects, alternatives discussed w/pt: Yes Patient agreeable to treatment: Yes (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 Current visit: No Status: Resolved Plan: Continue hospitalization, Close observation, Suicide Precautions per unit protocol, Encourage participation in unit milieu, Group Therapy, Monitor sleep, Monitor appetite Risks, benefits, side effects, alternatives discussed w/pt: Yes Patient agreeable to treatment: Yes (7) Tactile hallucinations Current visit: No Status: Resolved Plan: Continue hospitalization, Close observation, Suicide Precautions per unit protocol, Encourage participation in unit milieu, Group Therapy, Monitor sleep, Monitor appetite Risks, benefits, side effects, alternatives discussed w/pt: Yes Patient agreeable to treatment: Yes (8) Amphetamine abuse Current visit: No Status: Acute Plan: Continue hospitalization, Close observation, Suicide Precautions per unit protocol, Encourage participation in unit milieu, Group Therapy, Monitor sleep, Monitor appetite Risks, benefits, side effects, alternatives discussed w/pt: Yes Patient agreeable to treatment: Yes Consult Discharge Plan - Plan Referrals: NONE,PCP [Primary Care Provider] - Psychiatry Exam - Constitutional Vitals: Temp Pulse Resp BP Pulse Ox 98.2 F 69 16 119/74 100 09/08/17 09:00 09/08/17 09:00 09/08/17 09:00 09/08/17 09:00 09/07/17 06:30 General appearance: age & developmentally appropriate, well-groomed, well- nourished - Musculoskeletal Gait: normal Station: relaxed Strength & Tone: normal for patient - Psychiatric Patient Orientation: Yes Person, Yes Time, Yes Place Level of alertness: Alert Behavior: calm, cooperative Psychomotor activity: Normal Eye Contact: Maintains Eye Contact Mood Description: Euthymic/stable Affect description: congruent with mood, full range Speech Volume: Normal Speech pattern: normal rate, normal rhythm, normal tone, fluent, spontaneous Language & Vocabulary: consistent with education Thought Process: Linear, Goal Oriented Thought Content: No Suicidal ideation, No Homicidal ideation, No Overt delusions Perceptual Disturbances: No Auditory hallucinations, No Visual hallucinations Attention Span Ability: Capable of Focused Attention Memory Description: Grossly Intact Patient Reliability: Reliable Historian Fund of knowledge: Yes abstraction ability, Yes aware of current events Intelligence Estimate: Average Judgment: Limited Insight: Partial
[2017-09-08] MEDS: *HR* LORazepam 1 MG TABLET PO PRN ×2 (18:06→19:05)
--- NOTE | 2017-09-09 18:13 | Psychiatry Progress Note ---
Date of Encounter: 09/09/17 Time of Encounter: 17:30 Subjective Interval history: Mr. Little is a 21 year old male who presents with a hx of methamphetamine and cocaine abuse. Pt denied any side effects to current medications. Pt noted he felt safe and comfortable on the unit. Pt was in agreement with current treatment plan. Pt noted that he is doing alright today. Pt noted he slept really good night. Pt noted his appetite is good. Pt rated his depression a 0, on a scale of zero to ten with ten being the worst and zero being none. Pt rate his anxiety a 0, on the same scale. Pt denied any current auditory or visiual hallucinations. Pt denied any current thoughts to harm himself or anyone else. Pt noted he felt safe and comfortable for D/C tomorrow. MSE: Alert and Oriented x4 Appearance: neatly groomed dressed in appropriate civilian attire Behavior: friendly, courteous, polite Speech: Fluent, normal tone, normal rate Mood: okay Affect: mood congruent Thought content: no HI noted, no SI noted, no delusions noted Psychosis: PT currently not responding to internal stimuli Thought Process: Linear coherent goal directed Judgment: questionable/fair. Insight: questionable/fair . 1.Interval hx 2.Continue current medications 3.Review current labs 4.Pt had an opportunity to ask questions and discuss current treatment plan. 5.Supportive therapy was provided 6.Pt encouraged to consider group or individual therapy 7.Pt was in agreement with treatment plan. 8.Pt was educated on the risks benefits and side effects of current medications. 9. D/C pt home tomorrow with follow up at [facility] Review of Systems Constitutional: Denies: fever, chills, weakness, weight change Eyes: Denies: eye pain, vision change Ears, Nose, Throat: Denies: ear pain, throat pain, dental pain, hearing loss, congestion Cardiovascular: Denies: chest pain, palpitations, dyspnea on exertion Respiratory: Denies: cough, dyspnea, wheezes Gastrointestinal: Denies: abdominal pain, nausea, vomiting, diarrhea, constipation Musculoskeletal: Denies: joint swelling, joint pain Neurological: Denies: headache, weakness, numbness, memory loss Psychiatric: Reports: auditory hallucinations, visual hallucinations Results - Vital Signs Vital Signs: Temp Pulse Resp BP Pulse Ox 96.8 F L 70 18 119/79 100 09/09/17 09:00 09/09/17 09:00 09/09/17 09:00 09/09/17 09:00 09/07/17 06:30 Assessment and Plan (1) Suicidal ideation Current visit: No Status: Acute Plan: Continue hospitalization, Close observation, Suicide Precautions per unit protocol, Encourage participation in unit milieu, Group Therapy, Monitor sleep, Monitor appetite Risks, benefits, side effects, alternatives discussed w/pt: Yes Patient agreeable to treatment: Yes (2) Hallucinogen abuse Current visit: No Status: Acute Plan: Continue hospitalization, Close observation, Suicide Precautions per unit protocol, Encourage participation in unit milieu, Group Therapy, Monitor sleep, Monitor appetite Risks, benefits, side effects, alternatives discussed w/pt: Yes Patient agreeable to treatment: Yes (3) Cannabis abuse Current visit: No Status: Acute Plan: Continue hospitalization, Close observation, Suicide Precautions per unit protocol, Encourage participation in unit milieu, Group Therapy, Monitor sleep, Monitor appetite Risks, benefits, side effects, alternatives discussed w/pt: Yes Patient agreeable to treatment: Yes (4) Psychosis Current visit: No Status: Acute Plan: Continue hospitalization, Close observation, Suicide Precautions per unit protocol, Encourage participation in unit milieu, Group Therapy, Monitor sleep, Monitor appetite Risks, benefits, side effects, alternatives discussed w/pt: Yes Patient agreeable to treatment: Yes Qualifiers: Psychosis type: brief psychotic disorder Qualified Code(s): F23 - Brief psychotic disorder (5) Polysubstance (excluding opioids) dependence, binge pattern Current visit: No Status: Chronic Plan: Continue hospitalization, Close observation, Suicide Precautions per unit protocol, Encourage participation in unit milieu, Group Therapy, Monitor sleep, Monitor appetite Risks, benefits, side effects, alternatives discussed w/pt: Yes Patient agreeable to treatment: Yes (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 Current visit: No Status: Resolved Plan: Continue hospitalization, Close observation, Suicide Precautions per unit protocol, Encourage participation in unit milieu, Group Therapy, Monitor sleep, Monitor appetite Risks, benefits, side effects, alternatives discussed w/pt: Yes Patient agreeable to treatment: Yes (7) Tactile hallucinations Current visit: No Status: Resolved Plan: Continue hospitalization, Close observation, Suicide Precautions per unit protocol, Encourage participation in unit milieu, Group Therapy, Monitor sleep, Monitor appetite Risks, benefits, side effects, alternatives discussed w/pt: Yes Patient agreeable to treatment: Yes (8) Amphetamine abuse Current visit: No Status: Acute Plan: Continue hospitalization, Close observation, Suicide Precautions per unit protocol, Encourage participation in unit milieu, Group Therapy, Monitor sleep, Monitor appetite Risks, benefits, side effects, alternatives discussed w/pt: Yes Patient agreeable to treatment: Yes Consult Discharge Plan - Plan Referrals: Kalil Tate [facility] [Outside] Rukhsana Cai [Advanced Practice Nurse] - 10/09/17 11:00 am (The above appointment is with Rukhsana Cai CNP for primary care. You will need to be there 30 minutes early: * 1030am*. Please bring insurance card and photo ID.) Psychiatry Exam - Constitutional Vitals: Temp Pulse Resp BP Pulse Ox 96.8 F L 70 18 119/79 100 09/09/17 09:00 09/09/17 09:00 09/09/17 09:00 09/09/17 09:00 09/07/17 06:30 General appearance: age & developmentally appropriate, well-groomed, well- nourished - Musculoskeletal Gait: normal Station: relaxed Strength & Tone: normal for patient - Psychiatric Patient Orientation: Yes Person, Yes Time, Yes Place Level of alertness: Alert Behavior: calm, cooperative Psychomotor activity: Normal Eye Contact: Maintains Eye Contact Mood Description: Euthymic/stable Affect description: congruent with mood, full range Speech Volume: Normal Speech pattern: normal rate, normal rhythm, normal tone, fluent, spontaneous Language & Vocabulary: consistent with education Thought Process: Linear, Goal Oriented Thought Content: No Suicidal ideation, No Homicidal ideation, No Overt delusions Perceptual Disturbances: No Auditory hallucinations, No Visual hallucinations Attention Span Ability: Capable of Focused Attention Memory Description: Grossly Intact Patient Reliability: Reliable Historian Fund of knowledge: Yes abstraction ability, Yes aware of current events Intelligence Estimate: Average Judgment: Limited Insight: Partial
[2017-09-10 09:05] VITALS: BP 118/72
--- NOTE | 2017-09-10 09:07 | Discharge Summary ---
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 Status: Resolved (7) Tactile hallucinations Status: Resolved (8) Amphetamine abuse Status: Acute Medications - Discharge Medications Prescriptions: BuPROPion [Wellbutrin] 75 mg PO DAILY #30 tablet BuPROPion [Wellbutrin] 75 mg PO DAILY #30 tablet 09/10/17 [Rx] 3 Allergy/AdvReac Type Severity Reaction Status Date / Time No Known Allergies Allergy Verified 01/15/17 08:19 Provider Date of admission: 09/07/17 07:20 Primary care physician: PCP NONE Discharging clinician: Jassi Morelos Psychiatry Exam - Constitutional Vitals: Temp Pulse Resp BP Pulse Ox 98.3 F 65 18 117/80 100 09/09/17 20:11 09/09/17 20:11 09/09/17 20:11 09/09/17 20:11 09/07/17 06:30 General appearance: age & developmentally appropriate, well-groomed, well- nourished - Musculoskeletal Gait: normal Station: relaxed Strength & Tone: normal for patient - Psychiatric Patient Orientation: Yes Person, Yes Time, Yes Place Level of alertness: Alert Behavior: calm, cooperative Psychomotor activity: Normal Eye Contact: Maintains Eye Contact Mood Description: Euthymic/stable Affect description: congruent with mood, full range Speech Volume: Normal Speech pattern: normal rate, normal rhythm, normal tone, fluent, spontaneous Language & Vocabulary: consistent with education Thought Process: Linear, Goal Oriented Thought Content: No Suicidal ideation, No Homicidal ideation, No Overt delusions Perceptual Disturbances: No Auditory hallucinations, No Visual hallucinations Attention Span Ability: Capable of Focused Attention Memory Description: Grossly Intact Patient Reliability: Reliable Historian Fund of knowledge: Yes abstraction ability, Yes aware of current events Intelligence Estimate: Average Judgment: Limited Insight: Partial Hospital Course Hospital course: Mr. Little is a 21 year old male who presents with a hx of methamphetamine and cocaine abuse. Pt denied any side effects to current medications. Denies any cravings at this time. Pt noted he felt safe and comfortable on the unit. Pt was in agreement with current treatment plan. Pt noted that he is doing Pretty good today. Pt noted he slept really good last night. Pt noted his appetite is good. Pt rated his depression a 0, on a scale of zero to ten with ten being the worst and zero being none. Pt rate his anxiety a 0, on the same scale. Pt denied any current auditory or visiual hallucinations. Pt denied any current thoughts to harm himself or anyone else. Pt noted he felt safe and comfortable for D/C today. MSE: Alert and Oriented x4 Appearance: neatly groomed dressed in appropriate civilian attire Behavior: friendly, courteous, polite Speech: Fluent, normal tone, normal rate Mood: okay Affect: mood congruent Thought content: no HI noted, no SI noted, no delusions noted Psychosis: PT currently not responding to internal stimuli Thought Process: Linear coherent goal directed Judgment: questionable/fair. Insight: questionable/fair . 1.Interval hx 2.Continue current medications 3.Review current labs 4.Pt had an opportunity to ask questions and discuss current treatment plan. 5.Supportive therapy was provided 6.Pt encouraged to consider group or individual therapy 7.Pt was in agreement with treatment plan. 8.Pt was educated on the risks benefits and side effects of current medications. 9. D/C pt home with follow up at [facility] 10. Continue wellbutrin 75 mg pO QAM for mood cravings 11. Abstain from any alcohol or illict substances 12. Follow with all scheduled appointments 13. Take all medication as prescribed. Time spent discussing smoking cessation with patient: 3 to 10 minutes Does patient wish to continue nicotine replacement upon disc: No - Time Spent with Patient Total time spent providing and/or coordinating discharge services: Greater than 30 minutes Assessment and Plan - Patient/Caregiver Discharge Instructions Activity: resume usual activities as tolerated Diet: regular diet - Follow up Plan Follow up with: [facility] [Outside] - 09/17/17 2:00 pm (THe above appointment is with Ashia Bateman for mental health/SA counseling. Please bring completed [facility] intake packet you were provided at the hospital to your appointment along with proof of income, photo ID and proof of pending LAN[place] if possible. Be there 30 minutes early 1:30pm for paperwork.) Rukhsana Cai [Advanced Practice Nurse] - 10/09/17 11:00 am (The above appointment is with Rukhsana Cai CNP for primary care. You will need to be there 30 minutes early: * 1030am*. Please bring insurance card and photo ID.) Overall status at discharge: Stable Disposition: Home, Self-Care Quality - Multiple Antipsychotics Patient discharged on 2 or more antipsychotic medications: No - Justification Documentation of: Other justification (Pt not discharged on antipsychotics) Procedures - Procedures Procedures: Medication Management, Crisis Stabilization, Supportive Therapy, Group Therapy, Psychoeducational Therapy
== END 2017-09-10 10:12 | disposition home or self-care (01) | DRG 774 ==
LOC: EMEROO 17:41 → SUATTDRO 09-07 07:20 → 1ANU 09-07 07:20
PROVIDERS: ADMIT General Practice; ATTEND Psychiatry & Neurology Forensic Psychiatry

== ENCOUNTER 2017-11-24 21:32 | Inpatient (IN) ==
--- NOTE | 2017-11-24 21:45 | Emergency Department Note ---
Disposition Clinical Impression: Hallucinations Disposition: Admitted As Inpatient Condition: Fair Referrals: NONE,PCP [Primary Care Provider] - Time of Disposition: 04:17 General Adult HPI - General Stated complaint: si Time Seen by Provider: 11/24/17 21:34 Source: patient, EMS, police Mode of arrival: EMS Limitations: altered mental status Nursing Notes Reviewed: Yes Vital Signs Reviewed: Yes - History of Present Illness HPI Narrative: 22-year-old male presents via EMS and law enforcement for concerns of altered mental status. Patient is not able to provide an accurate history. Patient was found punching a light post and not acting appropriately. EMS brought the patient to the ED for further evaluation. Patient is alert and oriented to place and time however patient is not oriented to situation. When asked to provide any details the patient grabs his head and states that they are giving him shock therapy. Patient denies any specific pain or complaints. Patient does not answer questions appropriately. Unclear where the patient is under the influence of any illicit substances. No family or friends at bedside to provide any additional information. - Related Data Allergies Allergy/AdvReac Type Severity Reaction Status Date / Time No Known Allergies Allergy Verified 10/09/17 15:38 Limitations: ROS unobtainable due to patients medical condition Past Medical History - Past Medical History Source: unable to obtain Medical history: Reports: no medical history Surgical history: Reports: no surgical history Psychiatric history: Reports: ADHD, schizophrenia, previous psychiatric hospitalization - Social History Smoking Status: Former smoker Smokeless Tobacco Status: No Alcohol use: Reports: none Drug use: Reports: none Physical Exam - General Limitations: altered mental status General appearance: alert, in no apparent distress, anxious - Head Head exam: atraumatic, normocephalic, normal inspection - Eye Eye exam: Present: normal appearance, PERRL, EOMI. Absent: scleral icterus, miosis, mydriasis - ENT ENT exam: normal exam, mucous membranes moist - Neck Neck exam: Present: normal inspection - Chest Chest inspection: Present: normal inspection, symmetric chest wall rise - Respiratory Respiratory exam: Present: normal lung sounds bilaterally. Absent: respiratory distress - Cardiovascular Cardiovascular exam: Present: regular rate, normal rhythm. Absent: systolic murmur - Abdominal Exam Abdominal exam: Present: soft, Non-Tender - Extremities Exam Extremities exam: Present: normal inspection, other (superficial scratches distal arms. ). Absent: pedal edema - Expanded Lower Extremity Exam Neurovascular/Tendon exam: Present: normal capillary refill. Absent: pulse deficit, motor deficit, sensory deficit - Neurological Exam Neurological exam: Present: alert, CN II-XII intact. Absent: oriented X3 - Skin Skin exam: Present: warm, dry, intact, normal color, diaphoresis Course Course Narrative: Patient seen and examined. Patient will be pink slipped as he is altered and not able to provide any information. Patient is at risk of harming himself given his prehospital course and brought in by law enforcement with handcuffs. Patient handcuffs removed upon initial evaluation. Patient will get a medical screening evaluation. Disposition pending. - Reevaluation(s) Reevaluation #1: Patient is resting comfortably. Waiting Ia evaluation. Time: 03:06 - Consultations Consultation #1: Patient will be admitted to psychiatry service. Time: 04:13 Vital Signs Temperature 98.5 F 11/24/17 21:38 Pulse Rate 78 11/24/17 21:38 Respiratory Rate 16 11/24/17 21:38 Blood Pressure 125/93 11/24/17 21:38 O2 Sat by Pulse Oximetry 96 11/24/17 21:38 Temperature 98.5 F 11/24/17 21:38 Pulse Rate 57 11/25/17 00:37 Respiratory Rate 14 11/25/17 00:37 Blood Pressure 117/69 11/25/17 00:37 O2 Sat by Pulse Oximetry 100 11/25/17 00:37 Oxygen Delivery Oxygen Delivery Room Air Medical Decision Making - Lab Data Lab results reviewed: Yes I reviewed the patient's lab results. Result diagrams: 11/24/17 22:04 11/24/17 22:04 Lab Results 11/24/17 11/24/17 11/24/17 Range/Units 22:04 22:04 23:52 WBC 8.4 (4.3-11.1) K/mcL RBC 5.07 (4.19-5.50) M/mcL Hgb 15.5 (12.9-16.9) g/dL Hct 46.6 (37.5-50.1) % MCV 91.9 (83.0-100.0) fL MCH 30.6 (28.0-33.3) pg MCHC 33.3 (31.6-35.5) g/dL RDW 12.5 (11.5-14.5) % Plt Count 232 (140-400) K/mcL MPV 10.7 (9.4-12.4) fL Immature Gran % 0.2 (0-4) % Seg Neutrophils % 59.6 % Lymphocytes % 27.4 % Monocytes % 11.6 % Eosinophils % 0.5 % Basophils % 0.7 % Neutrophils # 5.0 (1.6-8.9) K/mcL Lymphocytes # 2.3 (0.6-4.6) K/mcL Monocytes # 1.0 (0.0-1.3) K/mcL Eosinophils # 0.0 (0.0-0.6) K/mcL Basophils # 0.1 (0.0-0.2) K/mcL Sodium 141 (136-145) mEq/L Potassium 4.5 (3.5-5.1) mEq/L Chloride 108 H (98-107) mEq/L Carbon Dioxide 23 (23-29) mEq/L BUN 23 H (6-20) mg/dL Creatinine 1.07 (0.70-1.30) mg/dL Est GFR ( Amer) > 60 (> 60) Est GFR (Non-Af Amer) > 60 (> 60) BUN/Creatinine Ratio 21 (6-26) Glucose 95 (70-105) mg/dL Calculated Osmolality 295 (280-300) Calcium 9.9 (8.6-10.3) mg/dL Urine Color Yellow (Yellow) Urine Clarity Clear (Clear) Urine pH 6.0 (5.0-8.0) pH Units Ur Specific [place] > 1.030 H (1.010-1.025) Urine Protein Trace (Neg-Trace) mg/dL Urine Glucose (UA) Normal (Normal) mg/dL Urine Ketones Negative (Negative) mg/dL Urine Blood Negative (Negative) Urine Nitrite Negative (Negative) Urine Bilirubin Negative (Negative) Urine Urobilinogen Normal (Normal) mg/dL Ur Leukocyte Esterase Negative (Negative) Urine Microscopic RBC 3-5 H (0-3) per hpf Urine Microscopic WBC 0-3 (0-3) per hpf Ur Squamous Epith Cells Few (None-Few) per lpf Urine Bacteria None Seen (None-Few) per hpf Hyaline Casts None Seen (None-Few) per lpf Salicylates < 2.5 L (15.0-30.0) mg/dL Urine Opiates Screen (Apiqto=887) ng/mL Acetaminophen < 10 L (10-20) mcg/mL Ur Barbiturates Screen (Bylxwz=659) ng/mL Ur Phencyclidine Scrn (Cutoff=25) ng/mL Ur Amphetamines Screen (Wgipuz=9905) ng/mL U Benzodiazepines Scrn (Qvnfbc=865) ng/mL Urine Cocaine Screen (Cutoff= 300) ng/mL U Marijuana (THC) Screen (Cutoff = 50) ng/mL Ur Drug Screen Interp Ethyl Alcohol < 10 (Less than 10) mg/dL 11/24/17 Range/Units 23:52 WBC (4.3-11.1) K/mcL RBC (4.19-5.50) M/mcL Hgb (12.9-16.9) g/dL Hct (37.5-50.1) % MCV (83.0-100.0) fL MCH (28.0-33.3) pg MCHC (31.6-35.5) g/dL RDW (11.5-14.5) % Plt Count (140-400) K/mcL MPV (9.4-12.4) fL Immature Gran % (0-4) % Seg Neutrophils % % Lymphocytes % % Monocytes % % Eosinophils % % Basophils % % Neutrophils # (1.6-8.9) K/mcL Lymphocytes # (0.6-4.6) K/mcL Monocytes # (0.0-1.3) K/mcL Eosinophils # (0.0-0.6) K/mcL Basophils # (0.0-0.2) K/mcL Sodium (136-145) mEq/L Potassium (3.5-5.1) mEq/L Chloride (98-107) mEq/L Carbon Dioxide (23-29) mEq/L BUN (6-20) mg/dL Creatinine (0.70-1.30) mg/dL Est GFR ( Amer) (> 60) Est GFR (Non-Af Amer) (> 60) BUN/Creatinine Ratio (6-26) Glucose (70-105) mg/dL Calculated Osmolality (280-300) Calcium (8.6-10.3) mg/dL Urine Color (Yellow) Urine Clarity (Clear) Urine pH (5.0-8.0) pH Units Ur Specific [place] (1.010-1.025) Urine Protein (Neg-Trace) mg/dL Urine Glucose (UA) (Normal) mg/dL Urine Ketones (Negative) mg/dL Urine Blood (Negative) Urine Nitrite (Negative) Urine Bilirubin (Negative) Urine Urobilinogen (Normal) mg/dL Ur Leukocyte Esterase (Negative) Urine Microscopic RBC (0-3) per hpf Urine Microscopic WBC (0-3) per hpf Ur Squamous Epith Cells (None-Few) per lpf Urine Bacteria (None-Few) per hpf Hyaline Casts (None-Few) per lpf Salicylates (15.0-30.0) mg/dL Urine Opiates Screen Negative (Capkkx=059) ng/mL Acetaminophen (10-20) mcg/mL Ur Barbiturates Screen Negative (Lydshr=293) ng/mL Ur Phencyclidine Scrn Negative (Cutoff=25) ng/mL Ur Amphetamines Screen Negative (Qevwrm=2582) ng/mL U Benzodiazepines Scrn Negative (Ajbzzn=141) ng/mL Urine Cocaine Screen Negative (Cutoff= 300) ng/mL U Marijuana (THC) Screen Negative (Cutoff = 50) ng/mL Ur Drug Screen Interp See Below Ethyl Alcohol (Less than 10) mg/dL - EKG Data EKG #1 EKG attestation: Yes I reviewed and interpreted this EKG. EKG shows normal: sinus rhythm Rate: normal Rhythm: NSR [place]/QRS: normal Interpretation: no acute changes, unchanged when compared to prior tracing (date ) (09/2017), nonspecific ST-T wave changes
[2017-11-24 22:16] LABS: Basophils # 0.1 K/mcL (0.0-0.2); Basophils % 0.7 %; Eosinophils % 0.5 %; Hematocrit 46.6 % (37.5-50.1); Hemoglobin 15.5 g/dL (12.9-16.9); Immature Granulocytes % 0.2 % (0-4); Lymphocytes # 2.3 K/mcL (0.6-4.6); Lymphocytes % 27.4 %; Mean Corpuscular HGB Conc 33.3 g/dL (31.6-35.5); Mean Corpuscular Hemoglobin 30.6 pg (28.0-33.3); Mean Corpuscular Volume 91.9 fL (83.0-100.0); Mean Platelet Volume 10.7 fL (9.4-12.4); Monocytes % 11.6 %; Platelet Count 232 K/mcL (140-400); Red Blood Count 5.07 M/mcL (4.19-5.50); Red Cell Distribution Width 12.5 % (11.5-14.5); Segmented Neutrophils % 59.6 %
[2017-11-24 22:52] LABS: Acetaminophen < 10 mcg/mL (10-20); BUN/Creatinine Ratio 21 (6-26); Blood Urea Nitrogen 23 mg/dL (6-20); Calcium 9.9 mg/dL (8.6-10.3); Carbon Dioxide 23 mEq/L (23-29); Chloride 108 mEq/L (98-107); Ethanol < 10 mg/dL (Less than 10); Glucose 95 mg/dL (70-105); Osmolality,Calculated 295 (280-300); Potassium 4.5 mEq/L (3.5-5.1); Salicylate < 2.5 mg/dL (15.0-30.0); Sodium 141 mEq/L (136-145); eGFR For Non-African Americans > 60 (> 60)
[2017-11-25 00:07] LABS: Bilirubin,Urine Negative (Negative); Blood,Urine Negative (Negative); Clarity,Urine Clear (Clear); Color,Urine Yellow (Yellow); Glucose,Urine (UA) Normal (Normal); Ketones,Urine Negative (Negative); Leukocyte Esterase,Urine Negative (Negative); Nitrite,Urine Negative (Negative); Protein,Urine Trace mg/dL (Neg-Trace); Specific Gravity,Urine > 1.030 (1.010-1.025); Urobilinogen,Urine Normal (Normal)
[2017-11-25 00:13] LABS: Amphetamine Screen,Urine Negative ng/mL (Cutoff=1000); Bacteria,Urine None Seen per hpf (None-Few); Barbiturate Screen,Urine Negative ng/mL (Cutoff=200); Benzodiazepines Screen,Urine Negative ng/mL (Cutoff=200); Cannabinoid Screen,Urine Negative ng/mL (Cutoff = 50); Cocaine Screen,Urine Negative ng/mL (Cutoff= 300); Hyaline Casts,Urine None Seen per lpf (None-Few); Opiate Screen,Urine Negative ng/mL (Cutoff=300); Phencyclidine Screen,Urine Negative ng/mL (Cutoff=25); Squamous Epithelial Cell,Urine Few per lpf (None-Few); WBC,Urine 0-3 per hpf (0-3)
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
[2017-11-25] MEDS ORDERED: MOM Conc 10 ML UD.LIQ PO PRN (04:55)
[2017-11-25] MEDS ORDERED: Mag Hydrox/Al Hydrox/Simeth 30 ML UDC PO PRN (04:55)
[2017-11-25] MEDS ORDERED: hydrOXYzine pamoate 25 MG CAPSULE PO PRN (04:55)
[2017-11-25] MEDS: Haloperidol Lactate 5 MG/ML VIAL IM PRN ×2 (06:34→21:32)
[2017-11-25] MEDS: *HR* LORazepam 2 MG/ML VIAL IM PRN ×2 (06:34→21:31)
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
[2017-11-25] MEDS: risperiDONE 1 MG TABLET PO SCH (21:30)
[2017-11-26] MEDS: risperiDONE 1 MG TABLET PO SCH ×2 (08:44→21:05)
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
[2017-11-27] MEDS: risperiDONE 1 MG TABLET PO SCH ×2 (08:41→20:19)
--- NOTE | 2017-11-27 10:59 | Psychiatry Progress Note ---
Date of Encounter: 11/27/17 Time of Encounter: 10:55 Subjective Interval history: Pt is a 22 yo,, male, who presents for Psychosis R/O substance induced. Pt continues to display religous preoccupation and bizarre behavior. Pt denied any side effects to current medications. Pt continues to refuse current medications. Pt noted that he is doing alright today. Pt noted he slept alright last night. Pt noted his appetite is fine. Pt rated his depression a 0, on a scale of zero to ten with ten being the worst and zero being none. Pt rate his anxiety a 0, on the same scale. Pt denied any auditory or visiual hallucinations. Pt denied any current thoughts to harm himself or anyone else. No TD noted, AIMS=0 Tobacco: 1/2 ppd Alcohol: "every once in a while." Street: Denies (questionable) Caffeine: 2-3 drinks per day Pt denies any hx of HIV, TBI or Seizures. Pt noted he is Hep C positive 1.Interval hx 2.Continue current medications 3.Review current labs 4.Pt had an opportunity to ask questions and discuss current treatment plan. 5.Supportive therapy was provided 6.Pt encouraged to consider group or individual therapy 7.Pt was in agreement with treatment plan. 8.Pt was educated on the risks benefits and side effects of current medications. Review of Systems Constitutional: Denies: fever, chills, weakness, weight change Eyes: Denies: eye pain, vision change Ears, Nose, Throat: Denies: ear pain, throat pain, dental pain, hearing loss, congestion Cardiovascular: Denies: chest pain, palpitations, dyspnea on exertion Respiratory: Denies: cough, dyspnea, wheezes Gastrointestinal: Denies: abdominal pain, nausea, vomiting, diarrhea, constipation Musculoskeletal: Denies: joint swelling, joint pain Neurological: Denies: headache, weakness, numbness, memory loss Psychiatric: Reports: homicidal ideation, auditory hallucinations (exacerbation of psychosis), other Results - Vital Signs Vital Signs: Temp Pulse Resp BP Pulse Ox 97.4 F L 60 18 124/77 98 11/27/17 09:00 11/27/17 09:00 11/27/17 09:00 11/27/17 09:00 11/25/17 21:00 Assessment and Plan (1) Acute psychosis Current visit: No Status: Resolved Plan: Continue hospitalization, Close observation, Suicide Precautions per unit protocol, Encourage participation in unit milieu, Group Therapy, Monitor sleep, Monitor appetite Risks, benefits, side effects, alternatives discussed w/pt: Yes Patient agreeable to treatment: Yes (2) Polysubstance (excluding opioids) dependence, binge pattern Current visit: No Status: Chronic Plan: Continue hospitalization, Close observation, Suicide Precautions per unit protocol, Encourage participation in unit milieu, Group Therapy, Monitor sleep, Monitor appetite Risks, benefits, side effects, alternatives discussed w/pt: Yes Patient agreeable to treatment: Yes (3) Amphetamine abuse Current visit: No Status: Acute Plan: Continue hospitalization, Close observation, Suicide Precautions per unit protocol, Encourage participation in unit milieu, Group Therapy, Monitor sleep, Monitor appetite Risks, benefits, side effects, alternatives discussed w/pt: Yes Patient agreeable to treatment: Yes Consult Discharge Plan - Plan Referrals: NONE,PCP [Primary Care Provider] - Psychiatry Exam - Constitutional Vitals: Temp Pulse Resp BP Pulse Ox 97.4 F L 60 18 124/77 98 11/27/17 09:00 11/27/17 09:00 11/27/17 09:00 11/27/17 09:00 11/25/17 21:00 General appearance: age & developmentally appropriate, well-groomed, well- nourished - Musculoskeletal Gait: normal Station: relaxed Strength & Tone: normal for patient - Psychiatric Patient Orientation: Yes Person, Yes Place Level of alertness: Alert Behavior: calm, uncooperative Psychomotor activity: Normal Eye Contact: Maintains Eye Contact Mood Description: Irritable Affect description: congruent with mood, full range Speech Volume: Normal Speech pattern: normal rate, normal rhythm, normal tone, fluent, spontaneous Language & Vocabulary: consistent with education Thought Process: Linear, Goal Oriented, Loose Associations Thought Content: No Suicidal ideation, No Homicidal ideation, Yes Overt delusions, Yes Roman Catholic delusion Perceptual Disturbances: Yes Reacting to internal stimuli, No Visual hallucinations Attention Span Ability: Capable of Focused Attention Memory Description: Grossly Intact Patient Reliability: Not Reliable Historian Fund of knowledge: Yes abstraction ability, Yes aware of current events Intelligence Estimate: Average Judgment: Poor Insight: Minimal
[2017-11-27] MEDS: *HR* LORazepam 1 MG TABLET PO PRN ×2 (13:52→20:19)
[2017-11-27] MEDS: Ibuprofen 400 MG TABLET PO PRN ×2 (13:52→20:19)
[2017-11-27] MEDS: traZODone 50 MG TABLET PO PRN (20:23)
--- NOTE | 2017-11-27 22:44 | Electrocardiograph Report ---
[place] [id number] Test Date: 2017-11-24 Pat Name: Denny Little Department: EXAM3 Room: [facility] Gender: M Windows Infrastructure Engineer: : 1995 Requested By: Slava Benjamin Order Number: [id number] Reading MD: Romina Jackson Measurements Intervals [place] Rate: 71 P: 49 OR: 143 QRS: 74 QRSD: 85 T: 43 QT: 354 QTc: 385 Interpretive Statements Sinus rhythm Early repolorization. Electronically Signed On 11-27-2017 22:43:09 EDT by Romina Jackson
[2017-11-28] MEDS: risperiDONE 1 MG TABLET PO SCH ×2 (08:37→20:23)
--- NOTE | 2017-11-28 10:55 | Psychiatry Progress Note ---
Date of Encounter: 11/28/17 Time of Encounter: 09:45 Subjective Interval history: Pt is a 22 yo,, male, who presents for Psychosis R/O substance induced. Pt continues to display religous preoccupation and bizarre behavior. Pt denied any side effects to current medications. Pt continues to refuse current medications. Pt noted that he is doing alright today. Pt noted he slept alright last night. Pt noted his appetite is fine. Pt rated his depression a 0, on a scale of zero to ten with ten being the worst and zero being none. Pt rate his anxiety a 0, on the same scale. Pt denied any auditory or visiual hallucinations. Pt denied any current thoughts to harm himself or anyone else. Pt agreed to start buspar 10 mg pO BID and lurasidone 40 mg PO QHS for mood pt was educated on the risks benefits and side effects of current medications or no medications. No TD noted, AIMS=0 Tobacco: 1/2 ppd Alcohol: "every once in a while." Street: Denies (questionable) Caffeine: 2-3 drinks per day Pt denies any hx of HIV, TBI or Seizures. Pt noted he is Hep C positive 1.Interval hx 2.Continue current medications 3.Review current labs 4.Pt had an opportunity to ask questions and discuss current treatment plan. 5.Supportive therapy was provided 6.Pt encouraged to consider group or individual therapy 7.Pt was in agreement with treatment plan. 8.Pt was educated on the risks benefits and side effects of current medications. Review of Systems Constitutional: Denies: fever, chills, weakness, weight change Eyes: Denies: eye pain, vision change Ears, Nose, Throat: Denies: ear pain, throat pain, dental pain, hearing loss, congestion Cardiovascular: Denies: chest pain, palpitations, dyspnea on exertion Respiratory: Denies: cough, dyspnea, wheezes Gastrointestinal: Denies: abdominal pain, nausea, vomiting, diarrhea, constipation Musculoskeletal: Denies: joint swelling, joint pain Neurological: Denies: headache, weakness, numbness, memory loss Psychiatric: Reports: homicidal ideation, auditory hallucinations (exacerbation of psychosis), other Results - Vital Signs Vital Signs: Temp Pulse Resp BP Pulse Ox 97.9 F 50 16 121/73 98 11/28/17 08:32 11/28/17 08:32 11/28/17 08:32 11/28/17 08:32 11/25/17 21:00 Assessment and Plan (1) Acute psychosis Current visit: No Status: Resolved Plan: Continue hospitalization, Close observation, Suicide Precautions per unit protocol, Encourage participation in unit milieu, Group Therapy, Monitor sleep, Monitor appetite Risks, benefits, side effects, alternatives discussed w/pt: Yes Patient agreeable to treatment: Yes (2) Polysubstance (excluding opioids) dependence, binge pattern Current visit: No Status: Chronic Plan: Continue hospitalization, Close observation, Suicide Precautions per unit protocol, Encourage participation in unit milieu, Group Therapy, Monitor sleep, Monitor appetite Risks, benefits, side effects, alternatives discussed w/pt: Yes Patient agreeable to treatment: Yes (3) Amphetamine abuse Current visit: No Status: Acute Plan: Continue hospitalization, Close observation, Suicide Precautions per unit protocol, Encourage participation in unit milieu, Group Therapy, Monitor sleep, Monitor appetite Risks, benefits, side effects, alternatives discussed w/pt: Yes Patient agreeable to treatment: Yes Consult Discharge Plan - Plan Referrals: NONE,PCP [Primary Care Provider] - Psychiatry Exam - Constitutional Vitals: Temp Pulse Resp BP Pulse Ox 97.9 F 50 16 121/73 98 11/28/17 08:32 11/28/17 08:32 11/28/17 08:32 11/28/17 08:32 11/25/17 21:00 General appearance: age & developmentally appropriate, well-groomed, well- nourished - Musculoskeletal Gait: normal Station: relaxed Strength & Tone: normal for patient - Psychiatric Patient Orientation: Yes Person, Yes Time, Yes Place Level of alertness: Alert Behavior: calm, cooperative, uncooperative, suspicious Psychomotor activity: Normal Eye Contact: Maintains Eye Contact Mood Description: Euthymic/stable Affect description: congruent with mood, full range Speech Volume: Normal Speech pattern: normal rate, normal rhythm, normal tone, fluent, spontaneous Language & Vocabulary: consistent with education Thought Process: Loose Associations, Disorganized Thought Content: No Suicidal ideation, No Homicidal ideation, No Overt delusions , Yes Paranoid delusion, Yes Anglican delusion Perceptual Disturbances: No Auditory hallucinations, No Visual hallucinations Attention Span Ability: Unable to Focus Memory Description: Recent Impaired, Remote Impaired Patient Reliability: Not Reliable Historian Fund of knowledge: Yes abstraction ability, Yes aware of current events Intelligence Estimate: Average Judgment: Poor Insight: Minimal
[2017-11-28] MEDS: Nicotine 21 MG PATCH.TD24 TD SCH (14:53)
[2017-11-29] MEDS: Nicotine 21 MG PATCH.TD24 TD SCH (07:58)
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
[2017-11-30] MEDS: Ibuprofen 400 MG TABLET PO PRN (04:03)
[2017-11-30] MEDS: Nicotine 21 MG PATCH.TD24 TD SCH ×2 (09:04→09:08)
--- NOTE | 2017-11-30 10:54 | Psychiatry Progress Note ---
Date of Encounter: 11/30/17 Time of Encounter: 10:51 Subjective Interval history: Client familiar to this commercial underwriter from last weekend. Remains psychotic. He likely stays psychotic at his baseline as he has an extensive history of drug use and noncompliance with treatment. He is improved in that he is calm and he was polite when talking with this commercial underwriter today. He denied SI/HI/AH/VH but he was actively responding to IS while in the room. Smiles and laughs inappropriately. Per staff he is paranoid about the water and wants to swallow pills without liquid. Some concern for cheeking meds. Has a probate hearing next week. So far client is not allowing staff to contact family or engage in much discharge planning. Review of Systems Constitutional: Denies: fever, chills, weakness, weight change Eyes: Denies: eye pain, vision change Ears, Nose, Throat: Denies: ear pain, throat pain, dental pain, hearing loss, congestion Cardiovascular: Denies: chest pain, palpitations, dyspnea on exertion Respiratory: Denies: cough, dyspnea, wheezes Gastrointestinal: Denies: abdominal pain, nausea, vomiting, diarrhea, constipation Musculoskeletal: Denies: joint swelling, joint pain Neurological: Denies: headache, weakness, numbness, memory loss Psychiatric: Reports: homicidal ideation, auditory hallucinations (exacerbation of psychosis), other Results - Vital Signs Vital Signs: Temp Pulse Resp BP Pulse Ox 98.1 F 71 18 125/76 98 11/30/17 09:00 11/30/17 09:00 11/30/17 09:00 11/30/17 09:00 11/25/17 21:00 Assessment and Plan (1) Schizophrenia Current visit: No Status: Chronic Plan: Continue hospitalization, Close observation, Suicide Precautions per unit protocol, Encourage participation in unit milieu, Group Therapy, Monitor sleep, Monitor appetite Risks, benefits, side effects, alternatives discussed w/pt: Yes Patient agreeable to treatment: Yes Qualifiers: Schizophrenia type: unspecified Qualified Code(s): F20.9 - Schizophrenia, unspecified Consult Discharge Plan - Plan Referrals: NONE,PCP [Primary Care Provider] - Psychiatry Exam - Constitutional Vitals: Temp Pulse Resp BP Pulse Ox 98.1 F 71 18 125/76 98 11/30/17 09:00 11/30/17 09:00 11/30/17 09:00 11/30/17 09:00 11/25/17 21:00 General appearance: unkempt, disheveled - Musculoskeletal Gait: normal Station: relaxed Strength & Tone: normal for patient - Psychiatric Patient Orientation: Yes Person, Yes Time, Yes Place Level of alertness: Alert Behavior: calm, cooperative Psychomotor activity: Normal Eye Contact: Minimal Contact Mood Description: Euthymic/stable Affect description: congruent with mood Speech Volume: Normal Speech pattern: normal rate, normal rhythm, normal tone, fluent, spontaneous Language & Vocabulary: consistent with education Thought Process: Tangential Thought Content: No Suicidal ideation, No Homicidal ideation, Yes Overt delusions Perceptual Disturbances: Yes Reacting to internal stimuli Attention Span Ability: Capable of Focused Attention Memory Description: Immediate Intact, Recent Impaired, Remote Intact Patient Reliability: Not Reliable Historian Fund of knowledge: Yes abstraction ability Intelligence Estimate: Below Average Judgment: Limited Insight: Minimal
[2017-12-01] MEDS: Nicotine 21 MG PATCH.TD24 TD SCH (08:58)
[2017-12-01] MEDS ORDERED: Lurasidone 20 MG TABLET PO SCH (09:00)
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
[2017-12-01] MEDS: *HR* LORazepam 1 MG TABLET PO PRN (16:22)
[2017-12-02] MEDS: Nicotine 21 MG PATCH.TD24 TD SCH (08:37)
[2017-12-02] MEDS ORDERED: Ziprasidone injection 20 MG/ML VIAL IM ONE (13:24)
--- NOTE | 2017-12-02 13:31 | Psychiatry Progress Note ---
Date of Encounter: 12/02/17 Time of Encounter: 13:30 Subjective Interval history: ID the patient is a 22-year-old white male. Chief complaint I do not want to talk to you. I have been here for 7 days. History of present illness: The patient has poor insight he is attending to hallucinations ceased talking to people that are not there when asked he says that he is talking to himself he refused to talk to the examiner. This is in part because he is a probate hearing. The patient refused his Seroquel last night. The patient has long history of psychiatric illness. After the assessment was determined the patient had acute psychosis and was responding to hallucinations he was not cooperative in his cares therefore a one -time dose of Geodon 20 mg IM was given Review of Systems Psychiatric: Reports: homicidal ideation, auditory hallucinations (exacerbation of psychosis), other Results - Vital Signs Vital Signs: Temp Pulse Resp BP Pulse Ox 97.7 F 57 18 137/82 98 12/02/17 08:51 12/02/17 08:51 12/02/17 08:51 12/02/17 08:51 11/25/17 21:00 Assessment and Plan (1) Disorganized schizophrenia Current visit: Yes Status: Acute Plan: Continue hospitalization, Close observation, Suicide Precautions per unit protocol, Encourage participation in unit milieu, Group Therapy, Monitor sleep, Monitor appetite, Secure weapons, Family/Supportive other meeting Risks, benefits, side effects, alternatives discussed w/pt: Yes Patient agreeable to treatment: Yes (2) Suicidal ideation Current visit: No Status: Acute Plan: Suicide Precautions per unit protocol, Secure weapons Risks, benefits, side effects, alternatives discussed w/pt: Yes Patient agreeable to treatment : Yes (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 Current visit: No Status: Acute (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 Current visit: No Status: Acute Consult Discharge Plan - Plan Referrals: NONE,PCP [Primary Care Provider] - Psychiatry Exam - Constitutional Vitals: Temp Pulse Resp BP Pulse Ox 97.7 F 57 18 137/82 98 12/02/17 08:51 12/02/17 08:51 12/02/17 08:51 12/02/17 08:51 11/25/17 21:00 General appearance: age & developmentally appropriate, thin - Musculoskeletal Gait: shuffling Station: bizarre mannerisms Strength & Tone: normal for patient - Psychiatric Patient Orientation: Yes Person, Yes Time, Yes Place, Yes Circumstance Level of alertness: Alert Behavior: suspicious, withdrawn Psychomotor activity: Repetitive movements Eye Contact: Minimal Contact Mood Description: Angry Affect description: inappropriate to situation Speech Volume: Normal Speech pattern: inappropriate to situation, excessive Language & Vocabulary: high school level Thought Process: Disorganized Thought Content: Yes Suicidal ideation, Yes Homicidal ideation, Yes Paranoid delusion, Yes Somatic delusion Perceptual Disturbances: Yes Reacting to internal stimuli, Yes Auditory hallucinations, Yes Visual hallucinations Attention Span Ability: Unable to Focus Memory Description: Recent Intact Fund of knowledge: Yes below average Intelligence Estimate: Below Average Judgment: Limited Insight: Minimal
[2017-12-03] MEDS: Nicotine 21 MG PATCH.TD24 TD SCH (08:49)
--- NOTE | 2017-12-03 13:21 | Psychiatry Progress Note ---
Date of Encounter: 12/03/17 Time of Encounter: 13:00 Subjective Interval history: Patient is a 22-year-old white male. Chief complaint if I could leave I did go home. The patient slapped but yesterday he required Geodon 20 mg IM he had somatic delusions he talked about accident did not happen he did not require restraints but at the prospect of having to go into restraints he punched a window. The patient's statements today are disorganized and tangential. Review of Systems Psychiatric: Reports: homicidal ideation, auditory hallucinations (exacerbation of psychosis), other Results - Vital Signs Vital Signs: Temp Pulse Resp BP Pulse Ox 97.1 F L 72 16 121/74 98 12/03/17 09:00 12/03/17 09:00 12/03/17 09:00 12/03/17 09:00 11/25/17 21:00 Assessment and Plan (1) Disorganized schizophrenia Current visit: Yes Status: Acute Risks, benefits, side effects, alternatives discussed w/pt: Yes Patient agreeable to treatment: Yes (2) Suicidal ideation Current visit: No Status: Acute Risks, benefits, side effects, alternatives discussed w/pt: Yes Patient agreeable to treatment: Yes (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 Current visit: No Status: Acute (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 Current visit: No Status: Acute Consult Discharge Plan - Plan Referrals: NONE,PCP [Primary Care Provider] - Psychiatry Exam - Constitutional Vitals: Temp Pulse Resp BP Pulse Ox 97.1 F L 72 16 121/74 98 12/03/17 09:00 12/03/17 09:00 12/03/17 09:00 12/03/17 09:00 11/25/17 21:00 General appearance: age & developmentally appropriate, well-groomed, well- nourished - Musculoskeletal Gait: normal Station: relaxed Strength & Tone: normal for patient - Psychiatric Patient Orientation: Yes Person, Yes Time, Yes Place Level of alertness: Alert Behavior: calm, cooperative Psychomotor activity: Slowed Eye Contact: Minimal Contact Mood Description: Angry Affect description: congruent with mood, full range, inappropriate to situation Speech Volume: Normal Speech pattern: normal rate, normal rhythm, normal tone, fluent, spontaneous, disorganized Language & Vocabulary: consistent with education Thought Process: Linear, Goal Oriented Thought Content: No Suicidal ideation, No Homicidal ideation, No Overt delusions , Yes Somatic delusion Perceptual Disturbances: Yes Reacting to internal stimuli, Yes Auditory hallucinations, No Visual hallucinations Attention Span Ability: Capable of Focused Attention Memory Description: Grossly Intact Patient Reliability: Questionable Historian Fund of knowledge: Yes abstraction ability, Yes average, Yes aware of current events Intelligence Estimate: Average Judgment: Limited Insight: Minimal
[2017-12-03] MEDS: Ibuprofen 400 MG TABLET PO PRN (13:52)
[2017-12-03] MEDS ORDERED: ARIPiprazole 2 MG TABLET PO SCH (21:00)
[2017-12-03] MEDS: Haloperidol Lactate 5 MG/ML VIAL IM PRN (23:36)
[2017-12-03] MEDS: *HR* LORazepam 2 MG/ML VIAL IM PRN (23:38)
[2017-12-04] MEDS: Nicotine 21 MG PATCH.TD24 TD SCH (10:23)
--- NOTE | 2017-12-04 11:46 | Psychiatry Progress Note ---
Date of Encounter: 12/04/17 Time of Encounter: 11:30 Subjective Interval history: ID the patient is a 22-year-old white male. He is on involuntary hospitalization. Chief complaint I would like to go to 4 mg of Abilify I do not like shots. History of present illness the patient has an involuntary hospitalization with a forced medication order. He has not taken Seroquel because he has been noncompliant. The patient was offered 5 mg Abilify but he wanted to ask for an increase to 4 mg of Abilify he wanted to increase BuSpar. The patient did not want to take the injectable form of aripiprazole 444 mg every 4 weeks. He was told that he had a forced medication order Last night 11:30 PM the patient had an hold for agitation and yelling and aggression. He did not go into restraints but required time sleep and restraint. He feels his medications are working well. Nonetheless patient is been observed attending to hallucinations. At this point we will make the adjustments in oral Abilify and educate him on the long-acting injectable form of aripiprazole Review of Systems Psychiatric: Reports: anxiety, homicidal ideation, auditory hallucinations ( exacerbation of psychosis), confusion, irritability, other Results - Vital Signs Vital Signs: Temp Pulse Resp BP Pulse Ox 97.5 F L 72 16 113/74 98 12/04/17 09:00 12/04/17 09:00 12/04/17 09:00 12/04/17 09:00 12/04/17 00:11 Assessment and Plan (1) Disorganized schizophrenia Current visit: Yes Status: Acute Plan: Continue hospitalization, Close observation, Suicide Precautions per unit protocol, Group Therapy, Monitor sleep, Monitor appetite, Secure weapons, Family /Supportive other meeting Risks, benefits, side effects, alternatives discussed w/pt: Yes Patient agreeable to treatment: Yes (2) Suicidal ideation Current visit: No Status: Acute Risks, benefits, side effects, alternatives discussed w/pt: Yes Patient agreeable to treatment: Yes (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 Current visit: No Status: Acute Plan: Continue hospitalization, Close observation, Suicide Precautions per unit protocol, Encourage participation in unit milieu, Group Therapy, Monitor sleep, Monitor appetite, Secure weapons Risks, benefits, side effects, alternatives discussed w/pt: Yes Patient agreeable to treatment: Yes (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 Current visit: No Status: Acute (5) Patient's noncompliance with other medical treatment and regimen Current visit: Yes Status: Acute Plan: Continue hospitalization, Close observation, Other Risks, benefits, side effects, alternatives discussed w/pt: Yes Patient agreeable to treatment : Yes Consult Discharge Plan - Plan Referrals: NONE,PCP [Primary Care Provider] - Psychiatry Exam - Constitutional Vitals: Temp Pulse Resp BP Pulse Ox 97.5 F L 72 16 113/74 98 12/04/17 09:00 12/04/17 09:00 12/04/17 09:00 12/04/17 09:00 12/04/17 00:11 General appearance: age & developmentally appropriate, well-groomed, well- nourished - Musculoskeletal Gait: normal Station: relaxed Strength & Tone: normal for patient - Psychiatric Patient Orientation: Yes Person, Yes Time, Yes Place Level of alertness: Alert Behavior: suspicious, impulsive Psychomotor activity: Repetitive movements Eye Contact: Maintains Eye Contact Mood Description: Labile Affect description: incongruent with mood Speech Volume: Normal Speech pattern: normal rate, normal rhythm, normal tone, limited, repetetive Language & Vocabulary: consistent with education Thought Process: Circumstantial, Perseveration, Slowed Thinking, Confabulation Thought Content: No Suicidal ideation, Yes Homicidal ideation, No Overt delusions, Yes Somatic delusion Perceptual Disturbances: Yes Auditory hallucinations, Yes Visual hallucinations Attention Span Ability: Capable of Focused Attention, Unable to Sustain Attention Memory Description: Immediate Impaired, Recent Impaired Patient Reliability: Not Reliable Historian Fund of knowledge: Yes abstraction ability, Yes aware of current events Intelligence Estimate: Average Judgment: Poor Insight: None
[2017-12-04] MEDS ORDERED: ARIPiprazole 2 MG TABLET PO SCH (12:00)
[2017-12-04] MEDS ORDERED: ARIPiprazole 2 MG TABLET PO ONE (12:30)
[2017-12-04] MEDS ORDERED: ARISTADA IM ONE (15:00)
[2017-12-05] MEDS: Nicotine 21 MG PATCH.TD24 TD SCH (08:56)
--- NOTE | 2017-12-05 14:53 | Psychiatry Progress Note ---
Date of Encounter: 12/05/17 Time of Encounter: 14:30 Subjective Interval history: ID the patient is a 22-year-old single white male. Chief complaint uncle live with my grandpa. The patient has had auditory hallucinations. He has been tending to hallucination he has required when necessary medicines. The patient is tolerated the Abilify 4 mg he is reluctant to increase oral Abilify but is willing to make a change medicines along as does not require an injection. Nonetheless the patient's noncompliance was poor insight illness may warrant a another injection of air*. The patient said that he would sign a release for us to talk to his grandfather Review of Systems Psychiatric: Reports: anxiety, homicidal ideation, auditory hallucinations ( exacerbation of psychosis), confusion, difficulty concentrating, irritability, other Results - Vital Signs Vital Signs: Temp Pulse Resp BP Pulse Ox 98.3 F 62 16 122/71 98 12/05/17 09:00 12/05/17 09:00 12/05/17 09:00 12/05/17 09:00 12/04/17 00:11 Assessment and Plan (1) Disorganized schizophrenia Current visit: Yes Status: Acute Plan: Continue hospitalization, Close observation, Suicide Precautions per unit protocol, Encourage participation in unit milieu, Group Therapy, Monitor sleep, Monitor appetite, Secure weapons Risks, benefits, side effects, alternatives discussed w/pt: Yes Patient agreeable to treatment: Yes (2) Suicidal ideation Current visit: No Status: Acute Risks, benefits, side effects, alternatives discussed w/pt: Yes Patient agreeable to treatment: Yes (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 Current visit: No Status: Acute Plan: Encourage participation in unit milieu, Group Therapy Risks, benefits, side effects, alternatives discussed w/pt: Yes Patient agreeable to treatment : Yes (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 Psychiatry Exam - Constitutional Vitals: Temp Pulse Resp BP Pulse Ox 98.3 F 62 16 122/71 98 12/05/17 09:00 12/05/17 09:00 12/05/17 09:00 12/05/17 09:00 12/04/17 00:11 General appearance: age & developmentally appropriate, unkempt - Musculoskeletal Gait: normal Station: bizarre mannerisms Strength & Tone: rigid - Psychiatric Patient Orientation: Yes Person, Yes Time, Yes Place Level of alertness: Alert Behavior: uncooperative, distractible Psychomotor activity: Normal Eye Contact: Maintains Eye Contact Mood Description: Irritable Affect description: inappropriate to situation, incongruent with mood Speech Volume: Soft/Quiet Speech pattern: disorganized, inappropriate to situation Language & Vocabulary: consistent with education Thought Process: Intact Thought Content: Yes Intact Perceptual Disturbances: Yes Reacting to internal stimuli Attention Span Ability: Capable of Sustained Attention Memory Description: Grossly Intact Patient Reliability: Not Reliable Historian Fund of knowledge: Yes below average Intelligence Estimate: Below Average Judgment: Limited Insight: Minimal
[2017-12-05] MEDS: ARIPiprazole 5 MG TABLET PO SCH (20:52)
[2017-12-06] MEDS: Nicotine 21 MG PATCH.TD24 TD SCH (10:07)
--- NOTE | 2017-12-06 13:24 | Psychiatry Progress Note ---
Date of Encounter: 12/06/17 Time of Encounter: 13:15 Subjective Interval history: The patient is a 22-year-old white male. He was seen in his room. Chief complaint can I go home today I can stay with my grandpa. History of present illness. The patient had a stressful day yesterday. He initially asked for Haldol and Ativan after meeting with several family members. She later did better and requested not to have it. The patient feels that Cogentin is helpful for the muscle cramps and tremors that he has he does not wish to increase Abilify as he blames this for side effect medicine. The patient did not wish to increase oral medicines. The patient has received a a long-acting injectable form of aripiprazole. This was given us week however the patient is resisting oral medicines. The patient requested to be on Ativan and scheduled doses this might help with muscle cramps and restlessness. Patient says the should not have medicines increased because he has bad kidneys. Patient feels that medicines are causing side effects. He is still willing to use when necessary medicines if needed Review of Systems Psychiatric: Reports: anxiety, confusion, difficulty concentrating, irritability , other Results - Vital Signs Vital Signs: Temp Pulse Resp BP Pulse Ox 98.4 F 64 18 128/74 98 12/06/17 08:21 12/06/17 08:21 12/06/17 08:21 12/06/17 08:21 12/04/17 00:11 Assessment and Plan (1) Disorganized schizophrenia Current visit: Yes Status: Acute Plan: Continue hospitalization, Close observation, Suicide Precautions per unit protocol, Encourage participation in unit milieu, Group Therapy, Monitor sleep, Monitor appetite Risks, benefits, side effects, alternatives discussed w/pt: Yes Patient agreeable to treatment: Yes (2) Suicidal ideation Current visit: No Status: Acute Plan: Close observation, Suicide Precautions per unit protocol, Encourage participation in unit milieu, Secure weapons Risks, benefits, side effects, alternatives discussed w/pt: Yes Patient agreeable to treatment: Yes (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 Referrals: NONE,PCP [Primary Care Provider] - Psychiatry Exam - Constitutional Vitals: Temp Pulse Resp BP Pulse Ox 98.4 F 64 18 128/74 98 12/06/17 08:21 12/06/17 08:21 12/06/17 08:21 12/06/17 08:21 12/04/17 00:11 General appearance: age & developmentally appropriate, well-groomed, well- nourished - Musculoskeletal Gait: shuffling Station: stooped Strength & Tone: normal for patient - Psychiatric Patient Orientation: Yes Person, Yes Time, Yes Place Level of alertness: Alert Behavior: guarded Psychomotor activity: Repetitive movements Eye Contact: Maintains Eye Contact Mood Description: Anxious Affect description: inappropriate to situation, incongruent with mood Speech Volume: Soft/Quiet Speech pattern: inappropriate to situation Language & Vocabulary: limited Thought Process: Circumstantial, Tangential Thought Content: Yes Somatic delusion Perceptual Disturbances: Yes Reacting to internal stimuli Attention Span Ability: Unable to Sustain Attention Patient Reliability: Not Reliable Historian Fund of knowledge: Yes average Judgment: Limited Insight: Minimal
[2017-12-06] MEDS: *HR* LORazepam 1 MG TABLET PO SCH (20:19)
[2017-12-06] MEDS: ARIPiprazole 5 MG TABLET PO SCH (20:19)
[2017-12-07] MEDS: *HR* LORazepam 1 MG TABLET PO SCH ×2 (09:04→20:05)
[2017-12-07] MEDS: Nicotine 21 MG PATCH.TD24 TD SCH (09:11)
--- NOTE | 2017-12-07 12:48 | Psychiatry Progress Note ---
Date of Encounter: 12/07/17 Time of Encounter: 12:45 Subjective Interval history: Chart reviewed, case discussed with nursing staff. Patient is seen for follow- up. Staff report patient is cooperative and medication compliant, reported to be internally stimulated and at times he is shadow fighting. No reports of agitation, no reports of suicidal or homicidal thoughts. Less paranoid. No reports of any side effects of medication. Review of Systems Psychiatric: Reports: anxiety, confusion, difficulty concentrating, irritability , other Results - Vital Signs Vital Signs: Temp Pulse Resp BP Pulse Ox 97.9 F 66 16 129/73 98 12/07/17 09:00 12/07/17 09:00 12/07/17 09:00 12/07/17 09:00 12/04/17 00:11 Assessment and Plan (1) Psychosis Current visit: No Status: Acute Plan: Continue hospitalization, Close observation, Suicide Precautions per unit protocol, Encourage participation in unit milieu, Group Therapy, Monitor sleep, Monitor appetite Qualifiers: Psychosis type: brief psychotic disorder Qualified Code(s): F23 - Brief psychotic disorder Consult Discharge Plan - Plan Additional Instructions: You were given Abilify Aristada 441mg on 12/04/2017 and Abilify Aristada 882mg on 12/10/2017. Your next dose of Abilify Aristada 882mg can be given on 01/08/2018 at psychiatry appointment at [facility]. The prescription for this medication has been sent to your pharmacy. You will need to get the medication filled and take it with you to your psychiatrist appointment on 01/08/2018. Referrals: [facility] [Outside] - 01/08/18 10:40 am (The above appointment is with Dr. Blake for outpatient psychiatric assessment and medication management services. You will also see the Dr. Blake's nurse for your injection after you finish with the doctor. Remember to bring your injection medication with you to this appointmnt. Please arrive 10 minutes early to complete the check- in process. Please bring your insurance card and photo ID. If you are unable to keep this appointment, 24 hour business notice of cancellation is expected. If you miss your new patient appointment with any provider without providing appropriate notice, you cannot be re-scheduled for that service. The [facility] is the [address] [place] [address] behind [facility]. Please do not use GPS or mapping apps to locate the office, as they will take you to the wrong location. ) [facility] [Outside] - 12/19/17 10:00 am (The above appointment is with Shasha Yang, counselor at [facility]'s [facility]. Your first appointment will take between one and two hours. You will be completing paperwork, meeting with a counselor and developing a treatment plan. You will receive follow- up appointments for on- going case management and counseling services. Please bring the following with you to your first visit to the clinic: 1) proof of household income or a statement from the person who financially supports you stating they help provide for your basic needs, 2) proof of address or a statement from person you live with verifying you live at their address, 3) your social security card , 4) photo ID, and 5) your insurance card. If you do not bring these items, it is possible that you may not be seen. ) Psychiatry Exam - Constitutional Vitals: Temp Pulse Resp BP Pulse Ox 97.9 F 66 16 129/73 98 12/07/17 09:00 12/07/17 09:00 12/07/17 09:00 12/07/17 09:00 12/04/17 00:11 General appearance: age & developmentally appropriate, well-groomed, well- nourished, average - Musculoskeletal Gait: normal Station: relaxed Strength & Tone: normal for patient - Psychiatric Patient Orientation: Yes Person, Yes Time, Yes Place Level of alertness: Alert Behavior: calm, cooperative Psychomotor activity: Normal Eye Contact: Minimal Contact Mood Description: Euthymic/stable Affect description: congruent with mood, full range, euphoric Speech Volume: Normal Speech pattern: normal rate, normal rhythm, normal tone, fluent, spontaneous, limited Language & Vocabulary: consistent with education Thought Process: Linear, Goal Oriented, [place] Thought Content: No Suicidal ideation, No Homicidal ideation, No Overt delusions , Yes Paranoid delusion Perceptual Disturbances: Yes Reacting to internal stimuli, No Auditory hallucinations, No Visual hallucinations Attention Span Ability: Capable of Focused Attention Memory Description: Grossly Intact Patient Reliability: Reliable Historian Fund of knowledge: Yes abstraction ability, Yes aware of current events Intelligence Estimate: Average Judgment: Limited Insight: Partial
[2017-12-07] MEDS: ARIPiprazole 5 MG TABLET PO SCH (20:05)
[2017-12-08] MEDS: *HR* LORazepam 1 MG TABLET PO SCH ×2 (08:33→20:27)
[2017-12-08] MEDS: Nicotine 21 MG PATCH.TD24 TD SCH (08:36)
--- NOTE | 2017-12-08 12:48 | Psychiatry Progress Note ---
Date of Encounter: 12/08/17 Time of Encounter: 12:15 Subjective Interval history: Patient seen for follow-up. Case discussed was nursing staff. Staff report patient continued to be internally stimulated token to self and laughing to self , he was observed by staff imitating using camera and taking pictures. No reports of agitation or irritability. Medication compliant. Anxious to be discharged. Review of Systems Psychiatric: Reports: anxiety, confusion, difficulty concentrating, irritability , other Results - Vital Signs Vital Signs: Temp Pulse Resp BP Pulse Ox 98 F 57 16 129/77 98 12/08/17 09:00 12/08/17 09:00 12/08/17 09:00 12/08/17 09:00 12/04/17 00:11 Assessment and Plan (1) Psychosis Current visit: No Status: Acute Plan: Continue hospitalization, Close observation, Suicide Precautions per unit protocol, Encourage participation in unit milieu, Group Therapy, Monitor sleep, Monitor appetite Qualifiers: Psychosis type: brief psychotic disorder Qualified Code(s): F23 - Brief psychotic disorder Consult Discharge Plan - Plan Additional Instructions: You were given Abilify Aristada 441mg on 12/04/2017 and Abilify Aristada 882mg on 12/10/2017. Your next dose of Abilify Aristada 882mg can be given on 01/08/2018 at psychiatry appointment at [facility]. The prescription for this medication has been sent to your pharmacy. You will need to get the medication filled and take it with you to your psychiatrist appointment on 01/08/2018. Referrals: [facility] [Outside] - 01/08/18 10:40 am (The above appointment is with Dr. Blake for outpatient psychiatric assessment and medication management services. You will also see the Dr. Blake's nurse for your injection after you finish with the doctor. Remember to bring your injection medication with you to this appointmnt. Please arrive 10 minutes early to complete the check- in process. Please bring your insurance card and photo ID. If you are unable to keep this appointment, 24 hour business notice of cancellation is expected. If you miss your new patient appointment with any provider without providing appropriate notice, you cannot be re-scheduled for that service. The [facility] is the [facility]st [facility] in [place], [place]. Please do not use GPS or mapping apps to locate the office, as they will take you to the wrong location. ) [facility] [Outside] - 12/19/17 10:00 am (The above appointment is with Shasha Yang, counselor at [facility]'s [facility]. Your first appointment will take between one and two hours. You will be completing paperwork, meeting with a counselor and developing a treatment plan. You will receive follow- up appointments for on- going case management and counseling services. Please bring the following with you to your first visit to the clinic: 1) proof of household income or a statement from the person who financially supports you stating they help provide for your basic needs, 2) proof of address or a statement from person you live with verifying you live at their address, 3) your social security card , 4) photo ID, and 5) your insurance card. If you do not bring these items, it is possible that you may not be seen. ) Psychiatry Exam - Constitutional Vitals: Temp Pulse Resp BP Pulse Ox 98 F 57 16 129/77 98 12/08/17 09:00 12/08/17 09:00 12/08/17 09:00 12/08/17 09:00 12/04/17 00:11 General appearance: age & developmentally appropriate, well-groomed, well- nourished, average - Musculoskeletal Gait: normal Station: relaxed Strength & Tone: normal for patient - Psychiatric Patient Orientation: Yes Person, Yes Time, Yes Place Level of alertness: Alert Behavior: calm, cooperative Psychomotor activity: Normal Eye Contact: Minimal Contact Mood Description: Euthymic/stable, Euphoric Affect description: congruent with mood, full range, euphoric Speech Volume: Normal Speech pattern: normal rate, normal rhythm, normal tone, fluent, spontaneous Language & Vocabulary: consistent with education Thought Process: Linear, Goal Oriented Thought Content: No Suicidal ideation, No Homicidal ideation, No Overt delusions Perceptual Disturbances: Yes Reacting to internal stimuli, No Auditory hallucinations, No Visual hallucinations Attention Span Ability: Capable of Focused Attention Memory Description: Grossly Intact Patient Reliability: Not Reliable Historian Fund of knowledge: Yes abstraction ability, Yes aware of current events Intelligence Estimate: Average Judgment: Limited Insight: Partial
[2017-12-08] MEDS: ARIPiprazole 5 MG TABLET PO SCH (20:27)
[2017-12-08] MEDS: traZODone 50 MG TABLET PO PRN (20:27)
[2017-12-09] MEDS: *HR* LORazepam 1 MG TABLET PO SCH ×2 (08:48→20:37)
[2017-12-09] MEDS: Nicotine 21 MG PATCH.TD24 TD SCH ×2 (08:49→18:41)
--- NOTE | 2017-12-09 13:43 | Psychiatry Progress Note ---
Date of Encounter: 12/09/17 Time of Encounter: 13:10 Subjective Interval history: Patient seen for follow-up. Case discussed with treatment team. Staff report patient continued to be internally stimulated, pacing the hallways, laughing and talking to himself. No agitation or combativeness. Medication compliant. Complain of feeling bored. He is anxious to be discharged accepting treatment plan. Denies any problem with sleep or appetite. He asked me if Abilify can be increased. Review of Systems Psychiatric: Reports: anxiety, confusion, difficulty concentrating, irritability , other Results - Vital Signs Vital Signs: Temp Pulse Resp BP Pulse Ox 97.9 F 73 18 119/73 98 12/09/17 09:00 12/09/17 09:00 12/09/17 09:00 12/09/17 09:00 12/04/17 00:11 Assessment and Plan (1) Psychosis Current visit: No Status: Acute Plan: Continue hospitalization, Close observation, Suicide Precautions per unit protocol, Encourage participation in unit milieu, Group Therapy, Monitor sleep, Monitor appetite Additional Plan: We will increase Abilify to 10 mg daily Qualifiers: Psychosis type: brief psychotic disorder Qualified Code(s): F23 - Brief psychotic disorder Consult Discharge Plan - Plan Additional Instructions: You were given Abilify Aristada 441mg on 12/04/2017 and Abilify Aristada 882mg on 12/10/2017. Your next dose of Abilify Aristada 882mg can be given on 01/08/2018 at psychiatry appointment at [facility]. The prescription for this medication has been sent to your pharmacy. You will need to get the medication filled and take it with you to your psychiatrist appointment on 01/08/2018. Referrals: [facility] [Outside] - 01/08/18 10:40 am (The above appointment is with Dr. Blake for outpatient psychiatric assessment and medication management services. You will also see the Dr. Blake's nurse for your injection after you finish with the doctor. Remember to bring your injection medication with you to this appointmnt. Please arrive 10 minutes early to complete the check- in process. Please bring your insurance card and photo ID. If you are unable to keep this appointment, 24 hour business notice of cancellation is expected. If you miss your new patient appointment with any provider without providing appropriate notice, you cannot be re-scheduled for that service. The [facility] is the 1st building behind [facility] in [place], [place]. Please do not use GPS or mapping apps to locate the office, as they will take you to the wrong location. ) [facility] [Outside] - 12/19/17 10:00 am (The above appointment is with Shasha Yang, counselor at [facility]'s [facility]. Your first appointment will take between one and two hours. You will be completing paperwork, meeting with a counselor and developing a treatment plan. You will receive follow- up appointments for on- going case management and counseling services. Please bring the following with you to your first visit to the clinic: 1) proof of household income or a statement from the person who financially supports you stating they help provide for your basic needs, 2) proof of address or a statement from person you live with verifying you live at their address, 3) your social security card , 4) photo ID, and 5) your insurance card. If you do not bring these items, it is possible that you may not be seen. ) Psychiatry Exam - Constitutional Vitals: Temp Pulse Resp BP Pulse Ox 97.9 F 73 18 119/73 98 12/09/17 09:00 12/09/17 09:00 12/09/17 09:00 12/09/17 09:00 12/04/17 00:11 General appearance: age & developmentally appropriate, well-groomed, well- nourished, bizarre, average - Musculoskeletal Gait: normal Station: relaxed Strength & Tone: normal for patient - Psychiatric Patient Orientation: Yes Person, Yes Time, Yes Place Level of alertness: Alert Behavior: calm, cooperative Psychomotor activity: Normal Eye Contact: Fleeting Contact Mood Description: Euthymic/stable, Euphoric Affect description: congruent with mood, full range, euphoric Speech Volume: Normal Speech pattern: normal rate, normal rhythm, normal tone, fluent, spontaneous Language & Vocabulary: consistent with education Thought Process: Linear, Goal Oriented Thought Content: No Suicidal ideation, No Homicidal ideation, No Overt delusions Perceptual Disturbances: Yes Reacting to internal stimuli, No Auditory hallucinations, No Visual hallucinations Attention Span Ability: Capable of Focused Attention Memory Description: Grossly Intact Patient Reliability: Reliable Historian Fund of knowledge: Yes abstraction ability, Yes aware of current events Intelligence Estimate: Average Judgment: Limited Insight: Partial
[2017-12-09] MEDS: ARIPiprazole 5 MG TABLET PO SCH (20:39)
[2017-12-10] MEDS: *HR* LORazepam 1 MG TABLET PO SCH ×2 (08:25→20:50)
[2017-12-10] MEDS: Nicotine 21 MG PATCH.TD24 TD SCH (08:26)
--- NOTE | 2017-12-10 13:20 | Psychiatry Progress Note ---
Date of Encounter: 12/10/17 Time of Encounter: 13:18 Subjective Interval history: Patient is seen for follow-up. Case discussed with treatment team. Staff report he is pleasant and cooperative, medication compliant, denies any problem with sleep or appetite. Denies SI and HI denied hallucinations. He is internally stimulated and talking to self at times. Discharge plans were reviewed with licensed social worker. Review of Systems Psychiatric: Reports: anxiety, confusion, difficulty concentrating, irritability , other Results - Vital Signs Vital Signs: Temp Pulse Resp BP Pulse Ox 97.3 F L 60 18 119/77 98 12/10/17 09:00 12/10/17 09:00 12/10/17 09:00 12/10/17 09:00 12/04/17 00:11 Assessment and Plan (1) Psychosis Current visit: No Status: Acute Plan: Continue hospitalization, Close observation, Suicide Precautions per unit protocol, Encourage participation in unit milieu, Group Therapy, Monitor sleep, Monitor appetite Risks, benefits, side effects, alternatives discussed w/pt: Yes Patient agreeable to treatment: Yes Qualifiers: Psychosis type: unspecified psychosis type Qualified Code(s): F29 - Unspecified psychosis not due to a substance or known physiological condition Consult Discharge Plan - Plan Additional Instructions: You were given Abilify Aristada 441mg on 12/04/2017 and Abilify Aristada 882mg on 12/10/2017. Your next dose of Abilify Aristada 882mg can be given on 01/08/2018 at psychiatry appointment at [facility]. The prescription for this medication has been sent to your pharmacy. You will need to get the medication filled and take it with you to your psychiatrist appointment on 01/08/2018. Referrals: [facility] [Outside] - 01/08/18 10:40 am (The above appointment is with Dr. Blake for outpatient psychiatric assessment and medication management services. You will also see the Dr. Blake's nurse for your injection after you finish with the doctor. Remember to bring your injection medication with you to this appointmnt. Please arrive 10 minutes early to complete the check- in process. Please bring your insurance card and photo ID. If you are unable to keep this appointment, 24 hour business notice of cancellation is expected. If you miss your new patient appointment with any provider without providing appropriate notice, you cannot be re-scheduled for that service. The [facility] is the 1st building behind [facility] in [place], [place]. Please do not use GPS or mapping apps to locate the office, as they will take you to the wrong location. ) [facility] [Outside] - 12/19/17 10:00 am (The above appointment is with Shasha Yang, counselor at [facility]'s [facility]. Your first appointment will take between one and two hours. You will be completing paperwork, meeting with a counselor and developing a treatment plan. You will receive follow- up appointments for on- going case management and counseling services. Please bring the following with you to your first visit to the clinic: 1) proof of household income or a statement from the person who financially supports you stating they help provide for your basic needs, 2) proof of address or a statement from person you live with verifying you live at their address, 3) your social security card , 4) photo ID, and 5) your insurance card. If you do not bring these items, it is possible that you may not be seen. ) Psychiatry Exam - Constitutional Vitals: Temp Pulse Resp BP Pulse Ox 97.3 F L 60 18 119/77 98 12/10/17 09:00 12/10/17 09:00 12/10/17 09:00 12/10/17 09:00 12/04/17 00:11 General appearance: age & developmentally appropriate, well-groomed, well- nourished - Musculoskeletal Gait: normal Station: relaxed Strength & Tone: normal for patient - Psychiatric Patient Orientation: Yes Person, Yes Time, Yes Place Level of alertness: Alert Behavior: calm, cooperative Psychomotor activity: Normal Eye Contact: Minimal Contact Mood Description: Euthymic/stable, Euphoric Affect description: congruent with mood, full range, euphoric Speech Volume: Normal Speech pattern: normal rate, normal rhythm, normal tone, fluent, spontaneous Language & Vocabulary: consistent with education Thought Process: Linear, Goal Oriented Thought Content: No Suicidal ideation, No Homicidal ideation, No Overt delusions Perceptual Disturbances: Yes Reacting to internal stimuli, No Auditory hallucinations, No Visual hallucinations Attention Span Ability: Capable of Focused Attention Memory Description: Grossly Intact Patient Reliability: Reliable Historian Fund of knowledge: Yes abstraction ability, Yes aware of current events Intelligence Estimate: Average Judgment: Limited Insight: Partial
[2017-12-10] MEDS: Ibuprofen 400 MG TABLET PO PRN (19:17)
[2017-12-10] MEDS: ARIPiprazole 5 MG TABLET PO SCH (20:51)
[2017-12-11] MEDS: *HR* LORazepam 1 MG TABLET PO SCH (08:40)
[2017-12-11] MEDS ORDERED: Patient Taking Own Medication 1 EACH IM ONE (08:42)
--- NOTE | 2017-12-11 10:41 | Discharge Summary ---
Date of Encounter: 12/11/17 Time of Encounter: 10:39 Diagnosis - Discharge Diagnosis (1) Schizophrenia Status: Chronic Qualifiers: Schizophrenia type: paranoid schizophrenia Qualified Code(s): F20.0 - Paranoid schizophrenia Medications - Discharge Medications Prescriptions: ARIPiprazole [Abilify] 10 mg PO HS #60 tablet Buspirone HCl [Buspar] 15 mg PO BID #120 tablet Aristada 441 mg IM ONCE 12/04/17 [History] Aripiprazole Lauroxil [Aristada] 882 mg IM ONCE 12/06/17 [History] ARIPiprazole [Abilify] 10 mg PO HS #60 tablet 12/11/17 [Rx] Buspirone HCl [Buspar] 15 mg PO BID #120 tablet 12/11/17 [Rx] 3 Allergy/AdvReac Type Severity Reaction Status Date / Time No Known Allergies Allergy Verified 10/09/17 15:38 Provider Date of admission: 11/25/17 04:18 Primary care physician: PCP NONE Discharging clinician: Jacob Lang Psychiatry Exam - Constitutional Vitals: Temp Pulse Resp BP Pulse Ox 98.9 F 69 18 131/74 98 12/10/17 20:16 12/10/17 20:16 12/10/17 20:16 12/10/17 20:16 12/04/17 00:11 General appearance: age & developmentally appropriate, well-groomed, well- nourished - Musculoskeletal Gait: normal Station: relaxed Strength & Tone: normal for patient - Psychiatric Patient Orientation: Yes Person, Yes Time, Yes Place Level of alertness: Alert Behavior: calm, cooperative Psychomotor activity: Normal Eye Contact: Minimal Contact Mood Description: Euthymic/stable, Anxious, Euphoric Affect description: congruent with mood, full range, euphoric Speech Volume: Normal Speech pattern: normal rate, normal rhythm, normal tone, fluent, spontaneous Language & Vocabulary: consistent with education Thought Process: Linear, Goal Oriented Thought Content: No Suicidal ideation, No Homicidal ideation, No Overt delusions Perceptual Disturbances: Yes Reacting to internal stimuli, No Auditory hallucinations, No Visual hallucinations Attention Span Ability: Capable of Focused Attention Memory Description: Grossly Intact Patient Reliability: Reliable Historian Fund of knowledge: Yes abstraction ability, Yes aware of current events Intelligence Estimate: Average Judgment: Limited Insight: Partial Hospital Course Hospital course: Mr. Little is a 22 year old male admitted for treatment of exacerbation of schizophrenia with delusion hallucinations and agitation. For details of the admission please see H&P On the units patient was treated with Abilify and BuSpar in addition to longer acting antipsychotic aristada. Patient tolerated medication without any side effects, he reported improved sleep and appetite. He participated in some group activities. He was noticed I staff responding to internal stimuli talking and laughing to himself, occasionally he was shadow fighting. Otherwise he was not agitated, denied any suicidal or homicidal ideation. He was polite and cooperative. His discharge plans were completed by group social worker and including appointments for follow-up and for monthly injection. On discharge patient was medically stable he was given his long-acting injection and monitored and continued to be stable, he denied any auditory or visual hallucinations he did not present any delusional speech, he was excited about discharged to his family. He was educated about medication compliance and activities. He is discharged in stable condition. - Time Spent with Patient Total time spent providing and/or coordinating discharge services: Less than 30 minutes Assessment and Plan - Patient/Caregiver Discharge Instructions Activity: resume usual activities as tolerated Diet: regular diet Additional Instructions: You were given Abilify Aristada 441mg on 12/04/2017 and Abilify Aristada 882mg on 12/10/2017. Your next dose of Abilify Aristada 882mg can be given on 01/08/2018 at psychiatry appointment at [facility]. The prescription for this medication has been sent to your pharmacy. You will need to get the medication filled and take it with you to your psychiatrist appointment on 01/08/2018. - Follow up Plan Follow up with: [facility] [Outside] - 01/08/18 10:40 am (The above appointment is with Dr. Blake for outpatient psychiatric assessment and medication management services. You will also see the Dr. Blake's nurse for your injection after you finish with the doctor. Remember to bring your injection medication with you to this appointmnt. Please arrive 10 minutes early to complete the check- in process. Please bring your insurance card and photo ID. If you are unable to keep this appointment, 24 hour business notice of cancellation is expected. If you miss your new patient appointment with any provider without providing appropriate notice, you cannot be re-scheduled for that service. The [facility] is the 1st building behind [facility] in [place], [place]. Please do not use GPS or mapping apps to locate the office, as they will take you to the wrong location. ) [facility] [Outside] - 12/19/17 10:00 am (The above appointment is with Shasha Yang, counselor at [facility]'s [facility]. Your first appointment will take between one and two hours. You will be completing paperwork, meeting with a counselor and developing a treatment plan. You will receive follow- up appointments for on- going case management and counseling services. Please bring the following with you to your first visit to the clinic: 1) proof of household income or a statement from the person who financially supports you stating they help provide for your basic needs, 2) proof of address or a statement from person you live with verifying you live at their address, 3) your social security card , 4) photo ID, and 5) your insurance card. If you do not bring these items, it is possible that you may not be seen. ) Functional capacity at discharge: independent ambulation Overall status at discharge: Stable Disposition: Home, Self-Care Quality - Multiple Antipsychotics Patient discharged on 2 or more antipsychotic medications: No Procedures - Procedures Procedures: Medication Management, Crisis Stabilization, Supportive Therapy, Group Therapy, Psychoeducational Therapy
[2017-12-11 10:49] VITALS: BP 121/80
[2017-12-11] MEDS: Nicotine 21 MG PATCH.TD24 TD SCH (10:51)
[2017-12-11] MEDS ORDERED: (Aripiprazole Lauroxil [Aristada] 882 MG) IM ONE (15:00)
== END 2017-12-11 13:50 | disposition home or self-care (01) | DRG 750 ==
LOC: EMEROOARM 21:32 → SUATTDRO 11-25 04:18 → 1ANU 11-25 04:18
PROVIDERS: ADMIT Psychiatry & Neurology Psychiatry; ATTEND Psychiatry & Neurology Psychiatry

== ENCOUNTER 2019-06-29 17:57 | Inpatient (IN) ==
[2019-06-29 19:03] LABS: Basophils % 0.4 %; Bilirubin,Urine Negative (Negative); Blood,Urine Negative (Negative); Clarity,Urine Clear (Clear); Color,Urine Yellow (Yellow); Eosinophils # 0.1 K/mcL (0.0-0.6); Glucose,Urine (UA) Normal (Normal); Hematocrit 49.5 % (37.5-50.1); Immature Granulocytes % 0.1 % (0-4); Ketones,Urine Negative (Negative); Leukocyte Esterase,Urine Negative (Negative); Lymphocytes # 2.7 K/mcL (0.6-4.6); Lymphocytes % 38.3 %; Mean Corpuscular HGB Conc 32.3 g/dL (31.6-35.5); Mean Corpuscular Hemoglobin 30.4 pg (28.0-33.3); Mean Corpuscular Volume 93.9 fL (83.0-100.0); Mean Platelet Volume 11.4 fL (9.4-12.4); Monocytes # 0.8 K/mcL (0.0-1.3); Monocytes % 11.2 %; Neutrophils # 3.5 K/mcL (1.6-8.9); Nitrite,Urine Negative (Negative); PH,Urine 5.5 pH Units (5.0-8.0); Platelet Count 253 K/mcL (140-400); Protein,Urine Negative (Neg-Trace); Red Blood Count 5.27 M/mcL (4.19-5.50); Red Cell Distribution Width 12.1 % (11.5-14.5); Specific Gravity,Urine 1.026 (1.010-1.025); Urobilinogen,Urine Normal (Normal); White Blood Count 7.2 K/mcL (4.3-11.1)
[2019-06-29 19:16] LABS: Amphetamine Screen,Urine Positive ng/mL (Cutoff=1000); Barbiturate Screen,Urine Negative ng/mL (Cutoff=200); Benzodiazepines Screen,Urine Negative ng/mL (Cutoff=200); Cannabinoid Screen,Urine Positive ng/mL (Cutoff = 50); Cocaine Screen,Urine Negative ng/mL (Cutoff= 300); Opiate Screen,Urine Negative ng/mL (Cutoff=300); Phencyclidine Screen,Urine Negative ng/mL (Cutoff=25)
[2019-06-29 19:18] LABS: Estimated Average Glucose 105 mg/dl
[2019-06-29 19:23] LABS: Acetaminophen < 10 mcg/mL (10-20); BUN/Creatinine Ratio 14 (6-26); Blood Urea Nitrogen 13 mg/dL (6-20); Carbon Dioxide 33 mEq/L (23-29); Chloride 104 mEq/L (98-107); Chol/HDL Ratio 2.6 (0-4.9); Cholesterol 142 mg/dL (< 200); Ethanol < 10 mg/dL (Less than 10); Glucose 55 mg/dL (70-105); HDL Cholesterol 54 mg/dL (40-59); LDL Cholesterol,Calculated 57 mg/dL (0-99); Osmolality,Calculated 294 (280-300); Potassium 3.9 mEq/L (3.5-5.1); Salicylate < 2.5 mg/dL (15.0-30.0); Sodium 143 mEq/L (136-145); Triglycerides 153 mg/dL (< 150); eGFR For African Americans > 60 (> 60); eGFR For Non-African Americans > 60 (> 60)
[2019-06-29] MEDS ORDERED: haloperidoL 5 MG TABLET PO PRN (20:58)
[2019-06-29] MEDS ORDERED: MOM Conc 10 ML UD.LIQ PO PRN (20:58)
[2019-06-29] MEDS ORDERED: Mag Hydrox/Al Hydrox/Simeth 30 ML UDC PO PRN (20:58)
[2019-06-29] MEDS ORDERED: *HR* LORazepam 2 MG/ML VIAL IM PRN (20:58)
[2019-06-29] MEDS ORDERED: Acetaminophen 325 MG TABLET PO PRN (20:58)
[2019-06-29] MEDS ORDERED: Haloperidol Lactate 5 MG/ML VIAL IM PRN (20:58)
[2019-06-29] MEDS ORDERED: *HR* LORazepam 1 MG TABLET PO PRN (20:58)
[2019-06-29] MEDS ORDERED: Nicotine 2 MG GUM BC PRN (20:58)
[2019-06-29] MEDS: QUEtiapine Fumarate 25 MG TABLET PO PRN (21:38)
[2019-06-30] MEDS: Nicotine 14 MG PATCH.TD24 TD SCH (10:03)
[2019-06-30] MEDS: hydrOXYzine pamoate 25 MG CAPSULE PO PRN (20:22)
[2019-07-01] MEDS: Nicotine 14 MG PATCH.TD24 TD SCH (09:46)
[2019-07-01] MEDS: hydrOXYzine pamoate 25 MG CAPSULE PO PRN ×2 (09:47→20:55)
[2019-07-01] MEDS: QUEtiapine Fumarate 25 MG TABLET PO PRN (20:55)
[2019-07-02] MEDS: Nicotine 14 MG PATCH.TD24 TD SCH (08:21)
[2019-07-02 08:27] VITALS: BP 122/77
[2019-07-02] MEDS ORDERED: Paliperidone Palmitate [Invega Sustenna] 234 MG IM ONE (11:30)
== END 2019-07-02 14:00 | disposition home or self-care (01) | DRG 776 ==
LOC: EMEROOARM 17:57 → 1ANU 20:55
PROVIDERS: ADMIT Psychiatry & Neurology Psychiatry; ATTEND Psychiatry & Neurology Psychiatry

== ENCOUNTER 2020-01-03 15:47 | Inpatient (IN) ==
[2020-01-03 16:20] LABS: Basophils # 0.1 K/mcL (0.0-0.2); Basophils % 0.5 %; Eosinophils # 0.3 K/mcL (0.0-0.6); Hematocrit 45.1 % (37.5-50.1); Hemoglobin 14.2 g/dL (12.9-16.9); Immature Granulocytes % 0.4 % (0-4); Lymphocytes # 1.9 K/mcL (0.6-4.6); Lymphocytes % 12.9 %; Mean Corpuscular HGB Conc 31.5 g/dL (31.6-35.5); Mean Corpuscular Hemoglobin 29.6 pg (28.0-33.3); Mean Platelet Volume 10.1 fL (9.4-12.4); Monocytes # 0.7 K/mcL (0.0-1.3); Monocytes % 4.5 %; Neutrophils # 11.8 K/mcL (1.6-8.9); Platelet Count 224 K/mcL (140-400); Red Cell Distribution Width 12.1 % (11.5-14.5); Segmented Neutrophils % 79.7 %; White Blood Count 14.8 K/mcL (4.3-11.1)
[2020-01-03 16:39] LABS: Acetaminophen < 10 mcg/mL (10-20); BUN/Creatinine Ratio 12 (6-26); Blood Urea Nitrogen 14 mg/dL (6-20); Calcium 8.8 mg/dL (8.6-10.3); Carbon Dioxide 27 mEq/L (23-29); Chloride 103 mEq/L (98-107); Ethanol < 10 mg/dL (Less than 10); Glucose 218 mg/dL (70-105); Osmolality,Calculated 291 (280-300); Potassium 4.8 mEq/L (3.5-5.1); Salicylate < 2.5 mg/dL (15.0-30.0); Sodium 137 mEq/L (136-145); eGFR For African Americans > 60 (> 60); eGFR For Non-African Americans > 60 (> 60)
[2020-01-03 17:53] LABS: Estimated Average Glucose 105 mg/dl
[2020-01-03] MEDS ORDERED: Ondansetron ODT 4 MG TAB.RAPDIS SL ONE (17:58)
[2020-01-03 18:55] LABS: Bacteria,Urine Few per hpf (None-Few); Bilirubin,Urine Negative (Negative); Blood,Urine Negative (Negative); Clarity,Urine Clear (Clear); Color,Urine Light-Yellow (Yellow); Glucose,Urine (UA) 500 mg/dL (Normal); Hyaline Casts,Urine Few per lpf (None Seen); Ketones,Urine Negative (Negative); Leukocyte Esterase,Urine Negative (Negative); Mucus,Urine Few per lpf (None-Few); Nitrite,Urine Negative (Negative); Protein,Urine Negative (Neg-Trace); RBC,Urine 0-3 per hpf (0-3); Specific Gravity,Urine 1.019 (1.010-1.025); Squamous Epithelial Cell,Urine Few per hpf (None-Few); Urobilinogen,Urine Normal (Normal); WBC,Urine 0-3 per hpf (0-3)
[2020-01-03 19:03] LABS: Amphetamine Screen,Urine Negative ng/mL (Cutoff=1000); Barbiturate Screen,Urine Negative ng/mL (Cutoff=200); Benzodiazepines Screen,Urine Negative ng/mL (Cutoff=200); Cannabinoid Screen,Urine Negative ng/mL (Cutoff = 50); Cocaine Screen,Urine Negative ng/mL (Cutoff= 300); Opiate Screen,Urine Negative ng/mL (Cutoff=300); Phencyclidine Screen,Urine Negative ng/mL (Cutoff=25)
[2020-01-03] MEDS ORDERED: hydrOXYzine pamoate 25 MG CAPSULE PO STA (20:25)
[2020-01-03] MEDS ORDERED: Ziprasidone 10 MG in Water for inj. (sterile) 0.5 ML IM ONE (20:25)
[2020-01-03] MEDS ORDERED: Ziprasidone 20 MG/VIAL VIAL IM ONE ×2 (20:41→20:48)
[2020-01-03] MEDS ORDERED: Water for inj. (sterile) 10 ML ONE (20:51)
[2020-01-03] MEDS ORDERED: *HR* LORazepam 2 MG/ML VIAL IM PRN (21:42)
[2020-01-03] MEDS ORDERED: *HR* LORazepam 1 MG TABLET PO PRN (21:42)
[2020-01-03] MEDS ORDERED: Haloperidol Lactate 5 MG/ML VIAL IM PRN (21:42)
[2020-01-03] MEDS ORDERED: Acetaminophen 325 MG TABLET PO PRN (21:42)
[2020-01-03] MEDS ORDERED: MOM Conc 10 ML UD.LIQ PO PRN (21:42)
[2020-01-03] MEDS ORDERED: haloperidoL 5 MG TABLET PO PRN (21:42)
[2020-01-04] MEDS: hydrOXYzine pamoate 25 MG CAPSULE PO PRN (04:27)
[2020-01-04] MEDS ORDERED: chlorproMAZINE 25 MG TABLET PO ONE (08:15)
[2020-01-04] MEDS: QUEtiapine Fumarate 25 MG TABLET PO PRN (20:21)
[2020-01-05] MEDS: hydrOXYzine pamoate 25 MG CAPSULE PO PRN ×2 (00:39→08:08)
[2020-01-05] MEDS: QUEtiapine Fumarate 25 MG TABLET PO PRN ×2 (00:39→19:59)
[2020-01-05] MEDS: ARIPiprazole 5 MG TABLET PO SCH (08:58)
[2020-01-05] MEDS ORDERED: ARIPiprazole 10 MG TABLET PO SCH (21:00)
[2020-01-06] MEDS: ARIPiprazole 5 MG TABLET PO SCH (08:30)
[2020-01-06] MEDS ORDERED: Multivit/Ca/Min/Fe/FA 1 TAB TABLET PO SCH (09:00)
[2020-01-06 09:15] VITALS: BP 126/71
[2020-01-06] MEDS ORDERED: ARIPIPRAZOLE LAUROXIL IM SCH (10:00)
[2020-01-06] MEDS ORDERED: ARIPiprazole 400 MG SUSER.SYR IM SCH (10:45)
== END 2020-01-06 12:45 | disposition home or self-care (01) | DRG 750 ==
LOC: EMEROOARM 15:47 → 1ANU 21:35
PROVIDERS: ADMIT Psychiatry & Neurology Psychiatry; ATTEND Psychiatry & Neurology Psychiatry